=== PATIENT | female | born 1980 | race American Indian/Alaskan Native ===

== ENCOUNTER 2020-05-16 16:14 | Inpatient (IN) | payer MEDICAID ==
--- NOTE | 2020-05-16 17:08 | EDM.PDOC ---
<Guanakito Reyes - Last Filed: 05/16/20 18:52> ED HPI GENERAL MEDICAL PROBLEM - General Chief Complaint: Abdominal Pain Stated Complaint: STOMACH PAIN Time Seen by Provider: 05/16/20 17:00 Source of Information: Reports: Patient, Old Records, RN, RN Notes Reviewed History Limitations: Reports: No Limitations - History of Present Illness INITIAL COMMENTS - FREE TEXT/NARRATIVE: Pt to ER with complaints of abdominal pain since yesterday after noon with diarrhea twice. Admits to nausea. Denies vomiting. No COVID exposure, tested negative a long time ago she states. She states the pain is sharp and makes it hard to breathe. She states that the pain goes into her back and it is upper and lower, and the pain is worse when she tries to push down to pee or have BM. Pt rates the pain 04/24. Onset: Gradual Onset Date: 05/15/20 Duration: Constant, Getting Worse Location: Reports: Abdomen Quality: Reports: Ache Severity: Severe Associated Symptoms: Reports: No Other Symptoms Abdomen Pain Score (Numeric/FACES): 10 - Related Data Allergies Allergy/AdvReac Type Severity Reaction Status Date / Time No Known Allergies Allergy Verified 05/16/20 16:53 Home Meds: Home Meds . [No Known Home Meds] 07/03/18 [History] Past Medical History Musculoskeletal History: Reports: Osteoarthritis Psychiatric History: Reports: Addiction Endocrine/Metabolic History: Reports: Obesity/BMI 30+ Social & Family History - Family History Family Medical History: Noncontributory - Tobacco Use Tobacco Use Status *Q: Current Every Day Tobacco User Years of Tobacco use: 5 Packs/Tins Daily: 0.1 - Caffeine Use Caffeine Use: Reports: Soda - Recreational Drug Use Recreational Drug Use: Yes Drug Use in Last 12 Months: Yes Recreational Drug Type: Reports: Methamphetamine - Living Situation & Occupation Living situation: Reports: with Family ED ROS GENERAL - Review of Systems Review Of Systems: Comprehensive ROS is negative, except as noted in HPI. ED EXAM, GI/ABD - Physical Exam Exam: See Below Exam Limited By: No Limitations General Appearance: Alert, WD/WN, Anxious, Mild Distress (due to pain) Eyes: Bilateral: Normal Appearance (No scleral icterus) Nose: Normal Inspection Throat/Mouth: Normal Inspection, Normal Lips, Normal Voice, No Airway Compromise Head: Atraumatic, Normocephalic Neck: Normal Inspection Respiratory/Chest: No Respiratory Distress, Lungs Clear, Normal Breath Sounds, No Accessory Muscle Use, Chest Non-Tender Cardiovascular: Regular Rate, Rhythm, Tachycardia GI/Abdominal Exam: Normal Bowel Sounds, Soft, No Distention, Pelvis Stable, Guarding, Rebound (at RLQ), Tender (acutely tender throughout entire abdomen). No: Rigid (Female) Exam: Deferred Rectal (Female) Exam: Deferred Back Exam: Normal Inspection, Full Range of Motion. No: CVA Tenderness (L), CVA Tenderness (R) Extremities: Normal Inspection Neurological: Alert, Oriented, CN II-XII Intact, Normal Cognition, Normal Gait, No Motor/Sensory Deficits Psychiatric: Anxious, Tearful Skin Exam: Warm, Dry, Intact, Normal Color, No Rash Course - Re-Assessments/Exams Free Text/Narrative Re-Assessment/Exam: 05/16/20 19:00 Care of pt transferred to Braulio Cihu [employer] at 1900HR shift change. Departure - Departure Disposition: Admitted As Inpatient 67 Clinical Impression: Diverticulitis, Colitis - Discharge Information Forms: ED Department Discharge Sepsis Event Note (ED) - Evaluation Sepsis Screening Result: No Definite Risk <Kaia Chiu - Last Filed: 05/16/20 20:05> Course - Vital Signs Last Recorded V/S: Last Vital Signs Temp 99.7 F 05/16/20 16:50 Pulse 145 H 05/16/20 16:50 Resp 14 05/16/20 16:50 BP 114/71 05/16/20 16:50 Pulse Ox 100 05/16/20 16:50 - Orders/Labs/Meds Orders: Active Orders 24 hr Category Date Time Status Admission Diagnosis [ADT] Stat ADT 05/16/20 20:01 Ordered Admission Status [Patient Status] [ADT] Routine ADT 05/16/20 20:01 Ordered Peripheral IV Care [RC] . DIRECTED Care 05/16/20 17:34 Active Peripheral IV Care [RC] . DIRECTED Care 05/16/20 17:59 Active CULTURE BLOOD [BC] Stat Lab 05/16/20 17:34 Ordered CULTURE BLOOD [BC] Stat Lab 05/16/20 17:34 Ordered CULTURE URINE [RM] Stat Lab 05/16/20 17:05 Received UA W/MICROSCOPIC [URIN] Stat Lab 05/16/20 17:05 Results Lactated Ringers [Ringers, Lactated] 1,000 ml Med 05/16/20 20:00 Active IV ASDIRECTED Sodium Chloride 0.9% [Saline Flush] Med 05/16/20 17:34 Active 10 ml FLUSH ASDIRECTED PRN Sodium Chloride 0.9% [Saline Flush] Med 05/16/20 17:59 Active 10 ml FLUSH ASDIRECTED PRN Blood Culture x2 Reflex Set [OM.PC] Stat Ot 05/16/20 17:33 Ordered Peripheral IV Insertion Adult [OM.PC] Stat Ot 05/16/20 17:33 Ordered Peripheral IV Insertion Adult [OM.PC] Stat Ot 05/16/20 17:59 Ordered Medication Orders Lactated Ringer's (Ringers, Lactated) 1,000 mls @ 500 mls/hr IV ASDIRECTED ZACHERY Last Admin: 05/16/20 19:55 Dose: 500 mls/hr Documented by: BRYANT Sodium Chloride (Saline Flush) 10 ml FLUSH ASDIRECTED PRN PRN Reason: Keep Vein Open Last Admin: 05/16/20 17:52 Dose: 10 ml Documented by: OMSAN Sodium Chloride (Saline Flush) 10 ml FLUSH ASDIRECTED PRN PRN Reason: Keep Vein Open Last Admin: 05/16/20 18:15 Dose: 10 ml Documented by: OSMAN Labs: Laboratory Tests 05/16/20 05/16/20 05/16/20 Range/Units 17:05 17:05 17:21 WBC 18.0 H (5.0-10.0) 10^3/uL RBC 4.40 (4.2-5.4) 10^6/uL Hgb 11.7 L (12.0-16.0) g/dL Hct 36.6 L (37.0-47.0) % MCV 83.2 D (80-100) fL MCH 26.6 L (27.0-34.0) pg MCHC 32.0 L (33.0-35.0) g/dL Plt Count 219 D (150-450) 10^3/uL Neut % (Auto) 83.1 H (42.2-75.2) % Lymph % (Auto) 12.4 L (20.5-50.1) % [place] % (Auto) 4.4 (2-8) % Eos % (Auto) 0.0 L (1.0-3.0) % Baso % (Auto) 0.1 (0.0-1.0) % Sodium (136-145) mmol/L Potassium (3.5-5.1) mmol/L Chloride (98-107) mmol/L Carbon Dioxide (21-32) mmol/L Anion Gap (7-13) mEq/L BUN (7-18) mg/dL Creatinine (0.55-1.02) mg/dL Est Cr Clr Drug Dosing mL/min Estimated GFR (MDRD) BUN/Creatinine Ratio (No establ ref range) Glucose (74-99) mg/dL Lactic Acid (0.4-2.0) mmol/L Calcium (8.5-10.1) mg/dL Total Bilirubin (0.2-1.0) mg/dL AST (15-37) U/L ALT (14-59) U/L Alkaline Phosphatase (46-116) U/L Total Protein (6.4-8.2) g/dL Albumin (3.4-5.0) g/dL Globulin Albumin/Globulin Ratio Amylase (25-115) U/L Lipase (73-393) U/L Urine Color Yellow (YELLOW) Urine Appearance Cloudy (CLEAR) Urine pH 6.0 (5.0-9.0) Ur Specific [place] >= 1.030 (1.005-1.030) Urine Protein 100 H (NEGATIVE) Urine Glucose (UA) Negative (NEGATIVE) Urine Ketones Trace H (NEGATIVE) Urine Occult Blood Moderate H (NEGATIVE) Urine Nitrite Negative (NEGATIVE) Urine Bilirubin Small H (NEGATIVE) Urine Urobilinogen 4.0 H (0.2-1.0) mg/dL Ur Leukocyte Esterase Small H (NEGATIVE) Urine Opiates Screen Negative (NEGATIVE) Ur Oxycodone Screen Negative (NEGATIVE) Urine Methadone Screen Negative (NEGATIVE) Ur Barbiturates Screen Negative (NEGATIVE) U Tricyclic Antidepress Negative (NEGATIVE) Ur Phencyclidine Scrn Negative (NEGATIVE) Ur Amphetamine Screen Positive H (NEGATIVE) U Methamphetamines Scrn Positive H (NEGATIVE) Urine MDMA Screen Negative (NEGATIVE) U Benzodiazepines Scrn Negative (NEGATIVE) Urine Cocaine Screen Negative (NEGATIVE) U Marijuana (THC) Screen Negative (NEGATIVE) 11/08/0405/16/20 05/16/20 Range/Units 17:21 17:21 18:55 WBC (5.0-10.0) 10^3/uL RBC (4.2-5.4) 10^6/uL Hgb (12.0-16.0) g/dL Hct (37.0-47.0) % MCV (80-100) fL MCH (27.0-34.0) pg MCHC (33.0-35.0) g/dL Plt Count (150-450) 10^3/uL Neut % (Auto) (42.2-75.2) % Lymph % (Auto) (20.5-50.1) % [place] % (Auto) (2-8) % Eos % (Auto) (1.0-3.0) % Baso % (Auto) (0.0-1.0) % Sodium 132 L 134 L (136-145) mmol/L Potassium 3.7 3.4 L (3.5-5.1) mmol/L Chloride 96 L 100 (98-107) mmol/L Carbon Dioxide 25 22 (21-32) mmol/L Anion Gap 14.7 H 15.4 H (7-13) mEq/L BUN 27 H 26 H (7-18) mg/dL Creatinine 1.30 H 1.22 H (0.55-1.02) mg/dL Est Cr Clr Drug Dosing 46.41 49.45 mL/min Estimated GFR (MDRD) 46 49 BUN/Creatinine Ratio 20.8 (No establ ref range) Glucose 110 H 99 (74-99) mg/dL Lactic Acid 1.1 (0.4-2.0) mmol/L Calcium 9.2 8.2 L (8.5-10.1) mg/dL Total Bilirubin 0.6 (0.2-1.0) mg/dL AST 12 L (15-37) U/L ALT 10 L (14-59) U/L Alkaline Phosphatase 78 (46-116) U/L Total Protein 8.5 H (6.4-8.2) g/dL Albumin 3.3 L (3.4-5.0) g/dL Globulin 5.2 Albumin/Globulin Ratio 0.63 Amylase 23 L (25-115) U/L Lipase 63 L (73-393) U/L Urine Color (YELLOW) Urine Appearance (CLEAR) Urine pH (5.0-9.0) Ur Specific [place] (1.005-1.030) Urine Protein (NEGATIVE) Urine Glucose (UA) (NEGATIVE) Urine Ketones (NEGATIVE) Urine Occult Blood (NEGATIVE) Urine Nitrite (NEGATIVE) Urine Bilirubin (NEGATIVE) Urine Urobilinogen (0.2-1.0) mg/dL Ur Leukocyte Esterase (NEGATIVE) Urine Opiates Screen (NEGATIVE) Ur Oxycodone Screen (NEGATIVE) Urine Methadone Screen (NEGATIVE) Ur Barbiturates Screen (NEGATIVE) U Tricyclic Antidepress (NEGATIVE) Ur Phencyclidine Scrn (NEGATIVE) Ur Amphetamine Screen (NEGATIVE) U Methamphetamines Scrn (NEGATIVE) Urine MDMA Screen (NEGATIVE) U Benzodiazepines Scrn (NEGATIVE) Urine Cocaine Screen (NEGATIVE) U Marijuana (THC) Screen (NEGATIVE) Meds: Medications Generic Name Dose Route Start Last Admin Trade Name Freq PRN Reason Stop Dose Admin Lactated Ringer's 1,000 mls @ 500 mls/hr 05/16/20 20:00 05/16/20 19:55 Ringers, Lactated IV 500 mls/hr ASDIRECTED ZACHERY Administration Sodium Chloride 10 ml 05/16/20 17:34 05/16/20 17:52 Saline Flush FLUSH 10 ml ASDIRECTED PRN Administration Keep Vein Open Sodium Chloride 10 ml 05/16/20 17:59 05/16/20 18:15 Saline Flush FLUSH 10 ml ASDIRECTED PRN Administration Keep Vein Open Discontinued Medications Generic Name Dose Route Start Last Admin Trade Name Freq PRN Reason Stop Dose Admin Hydromorphone HCl 1 mg 05/16/20 18:35 05/16/20 18:38 Dilaudid IVPUSH 05/16/20 18:36 1 mg ONETIME ONE Administration Sodium Chloride 1,000 mls @ 999 mls/hr 05/16/20 17:33 05/16/20 17:52 Normal Saline IV 05/16/20 18:33 999 mls/hr .BOLUS ONE Administration Piperacillin Sod/Tazobactam 100 mls @ 200 mls/hr 05/16/20 17:37 05/16/20 17:53 Sod 3.375 gm/ Sodium Chloride IV 05/16/20 18:06 200 mls/hr ONETIME ONE Administration Sodium Chloride 1,000 mls @ 999 mls/hr 05/16/20 17:59 05/16/20 18:14 Normal Saline IV 05/16/20 18:59 999 mls/hr .BOLUS ONE Administration Lactated Ringer's 500 mls @ 500 mls/hr 05/16/20 19:47 Ringers, Lactated IV 05/16/20 20:46 .BOLUS ONE Iopamidol 100 ml 05/16/20 18:36 05/16/20 19:12 Isovue-300 (61%) IVPUSH 05/16/20 18:37 100 ml ONETIME ONE Administration Ondansetron HCl 4 mg 05/16/20 17:33 05/16/20 17:52 Zofran IV 05/16/20 17:34 4 mg ONETIME ONE Administration - Radiology Interpretation Free Text/Narrative:: CT Abdomen/Pelvis with contrast: PROCEDURE INFORMATION: Exam: CT Abdomen And Pelvis With Contrast Exam date and time: 05/16/2020 7:29 PM Age: 39 years old Clinical indication: Other: Wbc 18,000; Additional info: Gen. Abdominal pain w/rebound @ rlq TECHNIQUE: Imaging protocol: Computed tomography of the abdomen and pelvis with intravenous contrast. Radiation optimization: All CT scans at this facility use at least one of these dose optimization techniques: automated exposure control; mA and/or kV adjustment per patient size (includes targeted exams where dose is matched to clinical indication); or iterative reconstruction. Contrast material: [id number]; Contrast volume: 75 ml; Contrast route: INTRAVENOUS (IV); COMPARISON: No relevant prior studies available. FINDINGS: Liver: Normal. No mass. Gallbladder and bile ducts: The gallbladder has been removed. There is no biliary ductal dilatation. Pancreas: Normal. No ductal dilation. Spleen: Normal. No splenomegaly. Adrenal glands: Normal. No mass. Kidneys and ureters: Normal. No hydronephrosis. Stomach and bowel: The colon is fluid-filled. Findings suggest probable diarrheal illness. Question possible colitis. Few scattered diverticula are present with inflammatory change in the left lower quadrant. Acute diverticulitis is possible. Appendix: No evidence of appendicitis. Intraperitoneal space: Unremarkable. No free air. No significant fluid collection. Vasculature: Unremarkable. No abdominal aortic aneurysm. Lymph nodes: Unremarkable. No enlarged lymph nodes. Urinary bladder: Unremarkable as visualized. Reproductive: Unremarkable as visualized. Bones/joints: Unremarkable. No acute fracture. Soft tissues: Unremarkable. IMPRESSION: 1. Moderate grade inflammatory change in the left lower quadrant where scattered diverticula are present. Acute diverticulitis is likely. Colon is also fluid-filled suggesting probable diarrheal illness. Correlate for possible superimposed colitis. Thank you for allowing us to participate in the care of your patient. Dictated and Authenticated by: Xavi Benavidez MD 05/16/2020 7:49 PM Central Time ([place] & [place]) See rad report - Re-Assessments/Exams Free Text/Narrative Re-Assessment/Exam: 05/16/20 20:05 Discussed patient case with Dr. Parr who agreed to accept the patient for inpatient admission. Departure - Departure Time of Disposition: 20:05 Condition: Fair - Discharge Information *PRESCRIPTION DRUG MONITORING PROGRAM REVIEWED*: No *COPY OF PRESCRIPTION DRUG MONITORING REPORT IN PATIENT BO: No Sepsis Event Note (ED) - Focused Exam Vital Signs: Vital Signs Temp Pulse Resp BP Pulse Ox 05/16/20 16:50 99.7 F 145 H 14 114/71 100 - My Orders Last 24 Hours: My Active Orders 05/16/20 20:00 Lactated Ringers [Ringers, Lactated] 1,000 ml IV ASDIRECTED 05/16/20 20:01 Admission Diagnosis [ADT] Stat Admission Status [Patient Status] [ADT] Routine - Assessment/Plan Last 24 Hours: My Active Orders 05/16/20 20:00 Lactated Ringers [Ringers, Lactated] 1,000 ml IV ASDIRECTED 05/16/20 20:01 Admission Diagnosis [ADT] Stat Admission Status [Patient Status] [ADT] Routine
[2020-05-16] MEDS ORDERED: Sodium Chloride 0.9% 1,000 ML IV ONE ×3 (17:33→22:16)
[2020-05-16] MEDS ORDERED: Ondansetron 4 MG/2 ML SDV IV ONE (17:33)
[2020-05-16] MEDS ORDERED: Sodium Chloride 0.9% 10 ML Syringe FLUSH PRN (17:34)
[2020-05-16] MEDS ORDERED: Piperacillin/Tazobactam 3.375 GM in Sodium Chloride 0.9% 100 ML IV ONE (17:37)
[2020-05-16 17:47] LABS: ANION GAP 14.7 mEq/L (7-13)
[2020-05-16] MEDS: Sodium Chloride 0.9% 10 ML Syringe FLUSH PRN (18:15)
[2020-05-16] MEDS ORDERED: HYDROmorphone 1 MG/ML Syringe IVPUSH ONE (18:35)
[2020-05-16] MEDS ORDERED: Iopamidol 612 MG/ML 100 ML Bottle IVPUSH ONE (18:36)
[2020-05-16 19:13] LABS: ANION GAP 15.4 mEq/L (7-13)
[2020-05-16] MEDS ORDERED: Lactated Ringers 500 ML IV ONE (19:47)
--- NOTE | 2020-05-16 19:49 | CT ---
PROCEDURE INFORMATION: Exam: CT Abdomen And Pelvis With Contrast Exam date and time: 05/16/2020 7:29 PM Age: 39 years old Clinical indication: Other: Wbc 18,000; Additional info: Gen. Abdominal pain w/rebound @ rlq TECHNIQUE: Imaging protocol: Computed tomography of the abdomen and pelvis with intravenous contrast. Radiation optimization: All CT scans at this facility use at least one of these dose optimization techniques: automated exposure control; mA and/or kV adjustment per patient size (includes targeted exams where dose is matched to clinical indication); or iterative reconstruction. Contrast material: [id number]; Contrast volume: 75 ml; Contrast route: INTRAVENOUS (IV); COMPARISON: No relevant prior studies available. FINDINGS: Liver: Normal. No mass. Gallbladder and bile ducts: The gallbladder has been removed. There is no biliary ductal dilatation. Pancreas: Normal. No ductal dilation. Spleen: Normal. No splenomegaly. Adrenal glands: Normal. No mass. Kidneys and ureters: Normal. No hydronephrosis. Stomach and bowel: The colon is fluid-filled. Findings suggest probable diarrheal illness. Question possible colitis. Few scattered diverticula are present with inflammatory change in the left lower quadrant. Acute diverticulitis is possible. Appendix: No evidence of appendicitis. Intraperitoneal space: Unremarkable. No free air. No significant fluid collection. Vasculature: Unremarkable. No abdominal aortic aneurysm. Lymph nodes: Unremarkable. No enlarged lymph nodes. Urinary bladder: Unremarkable as visualized. Reproductive: Unremarkable as visualized. Bones/joints: Unremarkable. No acute fracture. Soft tissues: Unremarkable. IMPRESSION: 1. Moderate grade inflammatory change in the left lower quadrant where scattered diverticula are present. Acute diverticulitis is likely. Colon is also fluid-filled suggesting probable diarrheal illness. Correlate for possible superimposed colitis.
[2020-05-16] MEDS: Lactated Ringers 1,000 ML IV SCH (19:55)
--- NOTE | 2020-05-16 20:54 | PCM.HP ---
H&P History of Present Illness - General Date of Service: 05/16/20 Admit Problem/Dx: Admission Diagnosis/Problem Admission Diagnosis/Problem Diverticulitis Source of Information: Patient History Limitations: Reports: No Limitations - History of Present Illness Initial Comments - Free Text/Narative: 39-year-old female with a medical history of methamphetamine abuse who presented to the ER with complaints of abdominal pain, nausea and diarrhea. Patient reported her symptoms started yesterday with development of moderate to severe abdominal pain. She had 2 episodes of watery stools yesterday. The symptoms was associated with with nausea. Today she had one episode of watery stool again. She rates her pain has 8-10/10. Abdominal pain is diffuse. She denies fever or emesis. In the ER, patient had tachycardia of 145. Labs were significant for WBC of 18, hemoglobin of 11.7, sodium of 134, potassium of 3.4, creatinine of 1.22, lactic acid of 1.1. Urine tox test was positive for methamphetamine and amphetamines. Covid-19 rapid test was negative. CT scan suggested moderate chronic inflammatory change in the left lower quadrant with scattered diverticula daryl rning for acute diverticulitis. Colon was also fluid field suggesting possible colitis. Patient received 2 L of IV fluid and was started on Zosyn Abdomen Pain Score (Numeric/FACES): 10 - Related Data Allergies/Adverse Reactions: Allergies Allergy/AdvReac Type Severity Reaction Status Date / Time No Known Allergies Allergy Verified 05/16/20 16:53 Home Medications: Home Meds . [No Known Home Meds] 07/03/18 [History] Past Medical History Musculoskeletal History: Reports: Osteoarthritis Psychiatric History: Reports: Addiction Endocrine/Metabolic History: Reports: Obesity/BMI 30+ Social & Family History - Family History Family Medical History: Noncontributory - Tobacco Use Tobacco Use Status *Q: Current Every Day Tobacco User Years of Tobacco use: 5 Packs/Tins Daily: 0.1 - Caffeine Use Caffeine Use: Reports: Soda - Recreational Drug Use Recreational Drug Use: Yes Drug Use in Last 12 Months: Yes Recreational Drug Type: Reports: Methamphetamine - Living Situation & Occupation Living situation: Reports: with Family H&P Review of Systems - Review of Systems: Review Of Systems: See Below General: Reports: No Symptoms HEENT: Reports: No Symptoms Pulmonary: Reports: No Symptoms Cardiovascular: Reports: No Symptoms Gastrointestinal: Reports: Abdominal Pain, Diarrhea, Nausea Musculoskeletal: Reports: No Symptoms Skin: Reports: No Symptoms Psychiatric: Reports: No Symptoms Neurological: Reports: No Symptoms Hematologic/Lymphatic: Reports: No Symptoms Immunologic: Reports: No Symptoms Exam - Exam Exam: See Below - Vital Signs Vital Signs: Last Vital Signs Temp 99.7 F 05/16/20 16:50 Pulse 145 H 05/16/20 16:50 Resp 14 05/16/20 16:50 BP 114/71 05/16/20 16:50 Pulse Ox 100 05/16/20 16:50 Weight: 156 lb - Exam General: Alert, Oriented, 4 HEENT: PERRLA, Hearing Intact, Mucosa Moist & [place], Nares Patent, Normal Nasal Septum, Posterior Pharynx Clear, Conjunctiva Clear, EOMI, EACs Clear, TMs Clear Neck: Supple, Trachea Midline, 2 Lungs: Clear to Auscultation, Normal Respiratory Effort Cardiovascular: Regular Rate, Regular Rhythm GI/Abdominal Exam: Normal Bowel Sounds, Soft, No Organomegaly, Tender. No: Distended, Rebound Back Exam: Normal Inspection, Full Range of Motion, NT Extremities: Normal Inspection, Normal Range of Motion, Non-Tender, No Pedal Edema, Normal Capillary Refill Skin: Warm, Dry, Intact Neurological: Cranial Nerves Intact, Reflexes Equal Bilateral Neuro Extensive - Mental Status: Alert, Oriented x3, Normal Mood/Affect, Normal Cognition Neuro Extensive - Motor, Sensory, Reflexes: CN II-XII Intact, Normal Gait, Normal Reflexes Psychiatric: Alert, Normal Affect, Normal Mood - Patient Data Lab Results Last 24 hrs: Laboratory Results - last 24 hr 05/16/20 05/16/20 05/16/20 Range/Units 17:05 17:05 17:21 WBC 18.0 H (5.0-10.0) 10^3/uL RBC 4.40 (4.2-5.4) 10^6/uL Hgb 11.7 L (12.0-16.0) g/dL Hct 36.6 L (37.0-47.0) % MCV 83.2 D (80-100) fL MCH 26.6 L (27.0-34.0) pg MCHC 32.0 L (33.0-35.0) g/dL Plt Count 219 D (150-450) 10^3/uL Neut % (Auto) 83.1 H (42.2-75.2) % Lymph % (Auto) 12.4 L (20.5-50.1) % [place] % (Auto) 4.4 (2-8) % Eos % (Auto) 0.0 L (1.0-3.0) % Baso % (Auto) 0.1 (0.0-1.0) % Sodium (136-145) mmol/L Potassium (3.5-5.1) mmol/L Chloride (98-107) mmol/L Carbon Dioxide (21-32) mmol/L Anion Gap (7-13) mEq/L BUN (7-18) mg/dL Creatinine (0.55-1.02) mg/dL Est Cr Clr Drug Dosing mL/min Estimated GFR (MDRD) BUN/Creatinine Ratio (No establ ref range) Glucose (74-99) mg/dL Lactic Acid (0.4-2.0) mmol/L Calcium (8.5-10.1) mg/dL Total Bilirubin (0.2-1.0) mg/dL AST (15-37) U/L ALT (14-59) U/L Alkaline Phosphatase (46-116) U/L Total Protein (6.4-8.2) g/dL Albumin (3.4-5.0) g/dL Globulin Albumin/Globulin Ratio Amylase (25-115) U/L Lipase (73-393) U/L Urine Color Yellow (YELLOW) Urine Appearance Cloudy (CLEAR) Urine pH 6.0 (5.0-9.0) Ur Specific [place] >= 1.030 (1.005-1.030) Urine Protein 100 H (NEGATIVE) Urine Glucose (UA) Negative (NEGATIVE) Urine Ketones Trace H (NEGATIVE) Urine Occult Blood Moderate H (NEGATIVE) Urine Nitrite Negative (NEGATIVE) Urine Bilirubin Small H (NEGATIVE) Urine Urobilinogen 4.0 H (0.2-1.0) mg/dL Ur Leukocyte Esterase Small H (NEGATIVE) Urine Opiates Screen Negative (NEGATIVE) Ur Oxycodone Screen Negative (NEGATIVE) Urine Methadone Screen Negative (NEGATIVE) Ur Barbiturates Screen Negative (NEGATIVE) U Tricyclic Antidepress Negative (NEGATIVE) Ur Phencyclidine Scrn Negative (NEGATIVE) Ur Amphetamine Screen Positive H (NEGATIVE) U Methamphetamines Scrn Positive H (NEGATIVE) Urine MDMA Screen Negative (NEGATIVE) U Benzodiazepines Scrn Negative (NEGATIVE) Urine Cocaine Screen Negative (NEGATIVE) U Marijuana (THC) Screen Negative (NEGATIVE) SARS CoV-2 RNA Rapid [place] (NEGATIVE) 05/16/20 05/16/20 05/16/20 Range/Units 17:21 17:21 18:55 WBC (5.0-10.0) 10^3/uL RBC (4.2-5.4) 10^6/uL Hgb (12.0-16.0) g/dL Hct (37.0-47.0) % MCV (80-100) fL MCH (27.0-34.0) pg MCHC (33.0-35.0) g/dL Plt Count (150-450) 10^3/uL Neut % (Auto) (42.2-75.2) % Lymph % (Auto) (20.5-50.1) % [place] % (Auto) (2-8) % Eos % (Auto) (1.0-3.0) % Baso % (Auto) (0.0-1.0) % Sodium 132 L 134 L (136-145) mmol/L Potassium 3.7 3.4 L (3.5-5.1) mmol/L Chloride 96 L 100 (98-107) mmol/L Carbon Dioxide 25 22 (21-32) mmol/L Anion Gap 14.7 H 15.4 H (7-13) mEq/L BUN 27 H 26 H (7-18) mg/dL Creatinine 1.30 H 1.22 H (0.55-1.02) mg/dL Est Cr Clr Drug Dosing 46.41 49.45 mL/min Estimated GFR (MDRD) 46 49 BUN/Creatinine Ratio 20.8 (No establ ref range) Glucose 110 H 99 (74-99) mg/dL Lactic Acid 1.1 (0.4-2.0) mmol/L Calcium 9.2 8.2 L (8.5-10.1) mg/dL Total Bilirubin 0.6 (0.2-1.0) mg/dL AST 12 L (15-37) U/L ALT 10 L (14-59) U/L Alkaline Phosphatase 78 (46-116) U/L Total Protein 8.5 H (6.4-8.2) g/dL Albumin 3.3 L (3.4-5.0) g/dL Globulin 5.2 Albumin/Globulin Ratio 0.63 Amylase 23 L (25-115) U/L Lipase 63 L (73-393) U/L Urine Color (YELLOW) Urine Appearance (CLEAR) Urine pH (5.0-9.0) Ur Specific [place] (1.005-1.030) Urine Protein (NEGATIVE) Urine Glucose (UA) (NEGATIVE) Urine Ketones (NEGATIVE) Urine Occult Blood (NEGATIVE) Urine Nitrite (NEGATIVE) Urine Bilirubin (NEGATIVE) Urine Urobilinogen (0.2-1.0) mg/dL Ur Leukocyte Esterase (NEGATIVE) Urine Opiates Screen (NEGATIVE) Ur Oxycodone Screen (NEGATIVE) Urine Methadone Screen (NEGATIVE) Ur Barbiturates Screen (NEGATIVE) U Tricyclic Antidepress (NEGATIVE) Ur Phencyclidine Scrn (NEGATIVE) Ur Amphetamine Screen (NEGATIVE) U Methamphetamines Scrn (NEGATIVE) Urine MDMA Screen (NEGATIVE) U Benzodiazepines Scrn (NEGATIVE) Urine Cocaine Screen (NEGATIVE) U Marijuana (THC) Screen (NEGATIVE) SARS CoV-2 RNA Rapid [place] (NEGATIVE) 05/16/20 Range/Units 19:57 WBC (5.0-10.0) 10^3/uL RBC (4.2-5.4) 10^6/uL Hgb (12.0-16.0) g/dL Hct (37.0-47.0) % MCV (80-100) fL MCH (27.0-34.0) pg MCHC (33.0-35.0) g/dL Plt Count (150-450) 10^3/uL Neut % (Auto) (42.2-75.2) % Lymph % (Auto) (20.5-50.1) % [place] % (Auto) (2-8) % Eos % (Auto) (1.0-3.0) % Baso % (Auto) (0.0-1.0) % Sodium (136-145) mmol/L Potassium (3.5-5.1) mmol/L Chloride (98-107) mmol/L Carbon Dioxide (21-32) mmol/L Anion Gap (7-13) mEq/L BUN (7-18) mg/dL Creatinine (0.55-1.02) mg/dL Est Cr Clr Drug Dosing mL/min Estimated GFR (MDRD) BUN/Creatinine Ratio (No establ ref range) Glucose (74-99) mg/dL Lactic Acid (0.4-2.0) mmol/L Calcium (8.5-10.1) mg/dL Total Bilirubin (0.2-1.0) mg/dL AST (15-37) U/L ALT (14-59) U/L Alkaline Phosphatase (46-116) U/L Total Protein (6.4-8.2) g/dL Albumin (3.4-5.0) g/dL Globulin Albumin/Globulin Ratio Amylase (25-115) U/L Lipase (73-393) U/L Urine Color (YELLOW) Urine Appearance (CLEAR) Urine pH (5.0-9.0) Ur Specific [place] (1.005-1.030) Urine Protein (NEGATIVE) Urine Glucose (UA) (NEGATIVE) Urine Ketones (NEGATIVE) Urine Occult Blood (NEGATIVE) Urine Nitrite (NEGATIVE) Urine Bilirubin (NEGATIVE) Urine Urobilinogen (0.2-1.0) mg/dL Ur Leukocyte Esterase (NEGATIVE) Urine Opiates Screen (NEGATIVE) Ur Oxycodone Screen (NEGATIVE) Urine Methadone Screen (NEGATIVE) Ur Barbiturates Screen (NEGATIVE) U Tricyclic Antidepress (NEGATIVE) Ur Phencyclidine Scrn (NEGATIVE) Ur Amphetamine Screen (NEGATIVE) U Methamphetamines Scrn (NEGATIVE) Urine MDMA Screen (NEGATIVE) U Benzodiazepines Scrn (NEGATIVE) Urine Cocaine Screen (NEGATIVE) U Marijuana (THC) Screen (NEGATIVE) SARS CoV-2 RNA Rapid [place] Negative (NEGATIVE) Result Diagrams: 05/16/20 17:21 05/16/20 18:55 Problem List Initiated/Reviewed/Updated: Yes Orders Last 24hrs: Active Orders 24 hr Category Date Time Status Admission Diagnosis [ADT] Stat ADT 05/16/20 20:01 Ordered Admission Status [Patient Status] [ADT] Routine ADT 05/16/20 20:01 Active Oxygen Therapy [RC] PRN Care 05/16/20 20:50 Ordered Peripheral IV Care [RC] . DIRECTED Care 05/16/20 17:34 Active Peripheral IV Care [RC] . DIRECTED Care 05/16/20 17:59 Active Up ad Ella [RC] ASDIRECTED Care 05/16/20 20:49 Ordered VTE/DVT Education [RC] PER UNIT ROUTINE Care 05/16/20 20:50 Ordered Vital Signs [RC] Q4H Care 05/16/20 20:50 Ordered Nothing per Oral Now Diet [DIET] Diet 05/16/20 Dinner Ordered BASIC METABOLIC PANEL,BMP [CHEM] AM Lab 05/17/20 05:11 Ordered CBC W/O DIFF,HEMOGRAM [HEME] AM Lab 05/17/20 05:11 Ordered CULTURE BLOOD [BC] Stat Lab 05/16/20 17:34 Ordered CULTURE BLOOD [BC] Stat Lab 05/16/20 17:34 Ordered CULTURE URINE [RM] Stat Lab 05/16/20 17:05 Received MAGNESIUM [CHEM] AM Lab 05/17/20 05:11 Ordered PHOSPHORUS [CHEM] AM Lab 05/17/20 05:11 Ordered UA W/MICROSCOPIC [URIN] Stat Lab 05/16/20 17:05 Results Acetaminophen [TylenoL] Med 05/16/20 20:49 Ordered 650 mg PO Q4H PRN Heparin Sodium Med 05/16/20 22:00 Ordered 5,000 units SUBCUT Q8HR Lactated Ringers [Ringers, Lactated] 1,000 ml Med 05/16/20 20:00 Active IV ASDIRECTED Morphine Med 05/16/20 20:49 Ordered 2 mg IVPUSH Q2H PRN Ondansetron [Zofran ODT] Med 05/16/20 20:49 Ordered 4 mg PO Q4H PRN Ondansetron [Zofran] Med 05/16/20 20:49 Ordered 4 mg IVPUSH Q4H PRN Piperacillin/Tazobactam [Zosyn] 3.375 gm Med 05/16/20 21:00 Ordered Sodium Chloride 0.9% [Normal Saline] 100 ml IV Q6H Sodium Chloride 0.9% [Saline Flush] Med 05/16/20 17:34 Active 10 ml FLUSH ASDIRECTED PRN Sodium Chloride 0.9% [Saline Flush] Med 05/16/20 17:59 Active 10 ml FLUSH ASDIRECTED PRN Blood Culture x2 Reflex Set [OM.PC] Stat Oth 05/16/20 17:33 Ordered Peripheral IV Insertion Adult [OM.PC] Stat Oth 05/16/20 17:33 Ordered Peripheral IV Insertion Adult [OM.PC] Stat Oth 05/16/20 17:59 Ordered Resuscitation Status Routine Resus Stat 05/16/20 20:49 Ordered Medication Orders Lactated Ringer's (Ringers, Lactated) 1,000 mls @ 100 mls/hr IV ASDIRECTED ZACHERY Last Admin: 05/16/20 19:55 Dose: 500 mls/hr Documented by: BRYANT Sodium Chloride (Saline Flush) 10 ml FLUSH ASDIRECTED PRN PRN Reason: Keep Vein Open Last Admin: 05/16/20 17:52 Dose: 10 ml Documented by: OSMAN Sodium Chloride (Saline Flush) 10 ml FLUSH ASDIRECTED PRN PRN Reason: Keep Vein Open Last Admin: 05/16/20 18:15 Dose: 10 ml Documented by: OSMAN Assessment/Plan Comment:: Acute diverticulitis Probable colitis Status post bolus IV fluids Start maintenance IV fluids with LR at 100 cc/h N.p.o. Analgesics as needed Obtain C. difficile test Continue Zosyn BUDDY Creatinine of 1.22 Monitor BMP with IV fluids Methamphetamine abuse Counseled on cessation Hypokalemia Potassium of 3.4 Replace Hyponatremia Sodium of 134 Repeat BMP in a.m. Chronic anemia Hemoglobin of 11.7 is at baseline. Repeat CBC in a.m.
[2020-05-16] MEDS ORDERED: Potassium Chloride 10 MEQ Tab.ER PO ONE (21:05)
[2020-05-16] MEDS: Morphine 2 MG/ML SYRINGE IVPUSH PRN ×2 (21:54→23:58)
[2020-05-16] MEDS: Ondansetron 4 MG/2 ML SDV IVPUSH PRN (21:55)
[2020-05-16] MEDS: Heparin Sodium 5,000 Units/ML Vial SUBCUT SCH (21:57)
[2020-05-16] MEDS: Piperacillin/Tazobactam 3.375 GM in Sodium Chloride 0.9% 100 ML IV SCH (23:44)
[2020-05-17] MEDS: Lactated Ringers 1,000 ML IV SCH ×3 (00:53→23:25)
[2020-05-17] MEDS: Morphine 2 MG/ML SYRINGE IVPUSH PRN ×5 (03:39→20:47)
[2020-05-17] MEDS: Acetaminophen 325 MG Tab PO PRN ×2 (03:48→13:07)
[2020-05-17] MEDS: Heparin Sodium 5,000 Units/ML Vial SUBCUT SCH ×3 (05:44→21:06)
[2020-05-17] MEDS: Piperacillin/Tazobactam 3.375 GM in Sodium Chloride 0.9% 100 ML IV SCH ×3 (05:45→18:00)
[2020-05-17 07:06] LABS: ANION GAP 14.4 mEq/L (7-13); CHLORIDE,CL 103 mmol/L (98-107); SODIUM,NA 137 mmol/L (136-145)
[2020-05-17] MEDS ORDERED: Potassium Chloride 10 MEQ Tab.ER PO ONE (09:00)
[2020-05-17] MEDS: Phosphorus #1 250 MG Tab PO SCH ×2 (09:07→20:56)
[2020-05-17] MEDS: Sodium Chloride 0.9% 10 ML Syringe FLUSH PRN ×4 (09:28→21:14)
[2020-05-17] MEDS ORDERED: Magnesium Sulfate/D5W 1 GM/100 ML BAG IV ONE (10:00)
--- NOTE | 2020-05-17 12:10 | PCM.PN ---
- General Info Date of Service: 05/17/20 Admission Dx/Problem (Free Text): Admission Diagnosis/Problem Admission Diagnosis/Problem Diverticulitis Subjective Update: Patient seen and examined today. no BM since admission but still having diffuse abdominal pain. Afebrile overnight. Functional Status: Reports: Pain Controlled - Review of Systems General: Reports: No Symptoms HEENT: Reports: No Symptoms Pulmonary: Reports: No Symptoms Cardiovascular: Reports: No Symptoms Gastrointestinal: Reports: Abdominal Pain Genitourinary: Reports: No Symptoms Musculoskeletal: Reports: No Symptoms Skin: Reports: No Symptoms Neurological: Reports: No Symptoms Psychiatric: Reports: No Symptoms - Patient Data Vitals - Most Recent: Last Vital Signs Temp 98.8 F 05/17/20 08:00 Pulse 92 05/17/20 08:00 Resp 16 05/17/20 08:00 BP 97/58 L 05/17/20 08:00 Pulse Ox 98 05/17/20 08:00 Weight - Most Recent: 156 lb I&O - Last 24 Hours: Intake & Output 05/16/20 05/17/20 05/17/20 22:59 06:59 14:59 Intake Total 2346 Output Total 900 Balance 1446 Lab Results Last 24 Hours: Laboratory Results - last 24 hr 05/16/20 05/16/20 05/16/20 Range/Units 17:05 17:05 17:21 WBC 18.0 H (5.0-10.0) 10^3/uL RBC 4.40 (4.2-5.4) 10^6/uL Hgb 11.7 L (12.0-16.0) g/dL Hct 36.6 L (37.0-47.0) % MCV 83.2 D (80-100) fL MCH 26.6 L (27.0-34.0) pg MCHC 32.0 L (33.0-35.0) g/dL Plt Count 219 D (150-450) 10^3/uL Neut % (Auto) 83.1 H (42.2-75.2) % Lymph % (Auto) 12.4 L (20.5-50.1) % Desha % (Auto) 4.4 (2-8) % Eos % (Auto) 0.0 L (1.0-3.0) % Baso % (Auto) 0.1 (0.0-1.0) % Sodium (136-145) mmol/L Potassium (3.5-5.1) mmol/L Chloride (98-107) mmol/L Carbon Dioxide (21-32) mmol/L Anion Gap (7-13) mEq/L BUN (7-18) mg/dL Creatinine (0.55-1.02) mg/dL Est Cr Clr Drug Dosing mL/min Estimated GFR (MDRD) BUN/Creatinine Ratio (No establ ref range) Glucose (74-99) mg/dL Lactic Acid (0.4-2.0) mmol/L Calcium (8.5-10.1) mg/dL Phosphorus (2.6-4.7) mg/dL Magnesium (1.8-2.4) mg/dL Total Bilirubin (0.2-1.0) mg/dL AST (15-37) U/L ALT (14-59) U/L Alkaline Phosphatase (46-116) U/L Total Protein (6.4-8.2) g/dL Albumin (3.4-5.0) g/dL Globulin Albumin/Globulin Ratio Amylase (25-115) U/L Lipase (73-393) U/L Urine Color Yellow (YELLOW) Urine Appearance Cloudy (CLEAR) Urine pH 6.0 (5.0-9.0) Ur Specific Greig >= 1.030 (1.005-1.030) Urine Protein 100 H (NEGATIVE) Urine Glucose (UA) Negative (NEGATIVE) Urine Ketones Trace H (NEGATIVE) Urine Occult Blood Moderate H (NEGATIVE) Urine Nitrite Negative (NEGATIVE) Urine Bilirubin Small H (NEGATIVE) Urine Urobilinogen 4.0 H (0.2-1.0) mg/dL Ur Leukocyte Esterase Small H (NEGATIVE) Urine RBC TNP Urine WBC TNP Ur Epithelial Cells TNP Urine Bacteria TNP Urine Opiates Screen Negative (NEGATIVE) Ur Oxycodone Screen Negative (NEGATIVE) Urine Methadone Screen Negative (NEGATIVE) Ur Barbiturates Screen Negative (NEGATIVE) U Tricyclic Antidepress Negative (NEGATIVE) Ur Phencyclidine Scrn Negative (NEGATIVE) Ur Amphetamine Screen Positive H (NEGATIVE) U Methamphetamines Scrn Positive H (NEGATIVE) Urine MDMA Screen Negative (NEGATIVE) U Benzodiazepines Scrn Negative (NEGATIVE) Urine Cocaine Screen Negative (NEGATIVE) U Marijuana (THC) Screen Negative (NEGATIVE) SARS CoV-2 RNA Rapid [place] (NEGATIVE) 05/16/20 05/16/20 05/16/20 Range/Units 17:21 17:21 18:55 WBC (5.0-10.0) 10^3/uL RBC (4.2-5.4) 10^6/uL Hgb (12.0-16.0) g/dL Hct (37.0-47.0) % MCV (80-100) fL MCH (27.0-34.0) pg MCHC (33.0-35.0) g/dL Plt Count (150-450) 10^3/uL Neut % (Auto) (42.2-75.2) % Lymph % (Auto) (20.5-50.1) % Desha % (Auto) (2-8) % Eos % (Auto) (1.0-3.0) % Baso % (Auto) (0.0-1.0) % Sodium 132 L 134 L (136-145) mmol/L Potassium 3.7 3.4 L (3.5-5.1) mmol/L Chloride 96 L 100 (98-107) mmol/L Carbon Dioxide 25 22 (21-32) mmol/L Anion Gap 14.7 H 15.4 H (7-13) mEq/L BUN 27 H 26 H (7-18) mg/dL Creatinine 1.30 H 1.22 H (0.55-1.02) mg/dL Est Cr Clr Drug Dosing 46.41 49.45 mL/min Estimated GFR (MDRD) 46 49 BUN/Creatinine Ratio 20.8 (No establ ref range) Glucose 110 H 99 (74-99) mg/dL Lactic Acid 1.1 (0.4-2.0) mmol/L Calcium 9.2 8.2 L (8.5-10.1) mg/dL Phosphorus (2.6-4.7) mg/dL Magnesium (1.8-2.4) mg/dL Total Bilirubin 0.6 (0.2-1.0) mg/dL AST 12 L (15-37) U/L ALT 10 L (14-59) U/L Alkaline Phosphatase 78 (46-116) U/L Total Protein 8.5 H (6.4-8.2) g/dL Albumin 3.3 L (3.4-5.0) g/dL Globulin 5.2 Albumin/Globulin Ratio 0.63 Amylase 23 L (25-115) U/L Lipase 63 L (73-393) U/L Urine Color (YELLOW) Urine Appearance (CLEAR) Urine pH (5.0-9.0) Ur Specific Greig (1.005-1.030) Urine Protein (NEGATIVE) Urine Glucose (UA) (NEGATIVE) Urine Ketones (NEGATIVE) Urine Occult Blood (NEGATIVE) Urine Nitrite (NEGATIVE) Urine Bilirubin (NEGATIVE) Urine Urobilinogen (0.2-1.0) mg/dL Ur Leukocyte Esterase (NEGATIVE) Urine RBC Urine WBC Ur Epithelial Cells Urine Bacteria Urine Opiates Screen (NEGATIVE) Ur Oxycodone Screen (NEGATIVE) Urine Methadone Screen (NEGATIVE) Ur Barbiturates Screen (NEGATIVE) U Tricyclic Antidepress (NEGATIVE) Ur Phencyclidine Scrn (NEGATIVE) Ur Amphetamine Screen (NEGATIVE) U Methamphetamines Scrn (NEGATIVE) Urine MDMA Screen (NEGATIVE) U Benzodiazepines Scrn (NEGATIVE) Urine Cocaine Screen (NEGATIVE) U Marijuana (THC) Screen (NEGATIVE) SARS CoV-2 RNA Rapid [place] (NEGATIVE) 05/16/20 05/17/20 05/17/20 Range/Units 19:57 06:28 06:28 WBC 11.8 H (5.0-10.0) 10^3/uL RBC 3.32 L (4.2-5.4) 10^6/uL Hgb 8.8 L D (12.0-16.0) g/dL Hct 28.6 L (37.0-47.0) % MCV 86.1 (80-100) fL MCH 26.5 L (27.0-34.0) pg MCHC 30.8 L (33.0-35.0) g/dL Plt Count 160 (150-450) 10^3/uL Neut % (Auto) (42.2-75.2) % Lymph % (Auto) (20.5-50.1) % Desha % (Auto) (2-8) % Eos % (Auto) (1.0-3.0) % Baso % (Auto) (0.0-1.0) % Sodium 137 (136-145) mmol/L Potassium 3.4 L (3.5-5.1) mmol/L Chloride 103 (98-107) mmol/L Carbon Dioxide 23 (21-32) mmol/L Anion Gap 14.4 H (7-13) mEq/L BUN 15 (7-18) mg/dL Creatinine 0.90 (0.55-1.02) mg/dL Est Cr Clr Drug Dosing 67.03 mL/min Estimated GFR (MDRD) > 60 BUN/Creatinine Ratio (No establ ref range) Glucose 72 L (74-99) mg/dL Lactic Acid (0.4-2.0) mmol/L Calcium 8.0 L (8.5-10.1) mg/dL Phosphorus 2.2 L (2.6-4.7) mg/dL Magnesium 1.5 L (1.8-2.4) mg/dL Total Bilirubin (0.2-1.0) mg/dL AST (15-37) U/L ALT (14-59) U/L Alkaline Phosphatase (46-116) U/L Total Protein (6.4-8.2) g/dL Albumin (3.4-5.0) g/dL Globulin Albumin/Globulin Ratio Amylase (25-115) U/L Lipase (73-393) U/L Urine Color (YELLOW) Urine Appearance (CLEAR) Urine pH (5.0-9.0) Ur Specific Greig (1.005-1.030) Urine Protein (NEGATIVE) Urine Glucose (UA) (NEGATIVE) Urine Ketones (NEGATIVE) Urine Occult Blood (NEGATIVE) Urine Nitrite (NEGATIVE) Urine Bilirubin (NEGATIVE) Urine Urobilinogen (0.2-1.0) mg/dL Ur Leukocyte Esterase (NEGATIVE) Urine RBC Urine WBC Ur Epithelial Cells Urine Bacteria Urine Opiates Screen (NEGATIVE) Ur Oxycodone Screen (NEGATIVE) Urine Methadone Screen (NEGATIVE) Ur Barbiturates Screen (NEGATIVE) U Tricyclic Antidepress (NEGATIVE) Ur Phencyclidine Scrn (NEGATIVE) Ur Amphetamine Screen (NEGATIVE) U Methamphetamines Scrn (NEGATIVE) Urine MDMA Screen (NEGATIVE) U Benzodiazepines Scrn (NEGATIVE) Urine Cocaine Screen (NEGATIVE) U Marijuana (THC) Screen (NEGATIVE) SARS CoV-2 RNA Rapid [place] Negative (NEGATIVE) Med Orders - Current: Current Medications Acetaminophen (Tylenol) 650 mg PO Q4H PRN PRN Reason: Pain (Mild 1-3)/fever Last Admin: 11/02/20 03:48 Dose: 650 mg Documented by: Heparin Sodium (Porcine) (Heparin Sodium) 5,000 units SUBCUT Q8HR [facility] Last Admin: 05/17/20 05:44 Dose: 5,000 units Documented by: Lactated Ringer's (Ringers, Lactated) 1,000 mls @ 100 mls/hr IV ASDIRECTED [facility] Last Admin: 05/17/20 11:47 Dose: 100 mls/hr Documented by: Piperacillin Sod/Tazobactam (Sod 3.375 gm/ Sodium Chloride) 100 mls @ 200 mls/hr IV Q6H [facility] Last Admin: 05/17/20 05:45 Dose: 200 mls/hr Documented by: Influenza Virus Vaccine (Pharmacy To Dose - Influenza Vaccine) 1 each IM DAILY [facility] Last Admin: 05/17/20 09:08 Dose: Not Given Documented by: Morphine Sulfate (Morphine) 2 mg IVPUSH Q2H PRN PRN Reason: Pain (severe 7-10) Last Admin: 05/17/20 09:28 Dose: 2 mg Documented by: Ondansetron HCl (Zofran Odt) 4 mg PO Q4H PRN PRN Reason: nausea, able to take PO Ondansetron HCl (Zofran) 4 mg IVPUSH Q4H PRN PRN Reason: Nausea/Vomiting Last Admin: 05/16/20 21:55 Dose: 4 mg Documented by: Sodium Chloride (Saline Flush) 10 ml FLUSH ASDIRECTED PRN PRN Reason: Keep Vein Open Last Admin: 05/17/20 09:28 Dose: 10 ml Documented by: Sodium Phosphate (Neutra-Phos) 500 mg PO BID [facility] Stop: 05/18/20 23:00 Last Admin: 05/17/20 09:07 Dose: 500 mg Documented by: Discontinued Medications Hydromorphone HCl (Dilaudid) 1 mg IVPUSH ONETIME ONE Stop: 05/16/20 18:36 Last Admin: 05/16/20 18:38 Dose: 1 mg Documented by: Sodium Chloride (Normal Saline) 1,000 mls @ 999 mls/hr IV .BOLUS ONE Stop: 05/16/20 18:33 Last Admin: 05/16/20 17:52 Dose: 999 mls/hr Documented by: Piperacillin Sod/Tazobactam (Sod 3.375 gm/ Sodium Chloride) 100 mls @ 200 mls/hr IV ONETIME ONE Stop: 05/16/20 18:06 Last Admin: 05/16/20 17:53 Dose: 200 mls/hr Documented by: Sodium Chloride (Normal Saline) 1,000 mls @ 999 mls/hr IV .BOLUS ONE Stop: 05/16/20 18:59 Last Admin: 05/16/20 18:14 Dose: 999 mls/hr Documented by: Lactated Ringer's (Ringers, Lactated) 500 mls @ 500 mls/hr IV .BOLUS ONE Stop: 05/16/20 20:46 Last Admin: 05/16/20 21:21 Dose: Not Given Documented by: Sodium Chloride (Normal Saline) 1,000 mls @ 500 mls/hr IV ONETIME ONE Stop: 05/17/20 00:15 Last Admin: 05/16/20 22:20 Dose: 500 mls/hr Documented by: Magnesium Sulfate/Dextrose (Magnesium Sulfate In D5w 100 Premix) 1 gm in 100 mls @ 100 mls/hr IV ONETIME ONE Stop: 05/17/20 10:59 Last Infusion: 05/17/20 10:34 Dose: Infused Documented by: Iopamidol (Isovue-300 (61%)) 100 ml IVPUSH ONETIME ONE Stop: 05/16/20 18:37 Last Admin: 05/16/20 19:12 Dose: 100 ml Documented by: Ondansetron HCl (Zofran) 4 mg IV ONETIME ONE Stop: 05/16/20 17:34 Last Admin: 05/16/20 17:52 Dose: 4 mg Documented by: Potassium Chloride (Klor-Con 10) 40 meq PO ONETIME ONE Stop: 05/16/20 21:06 Last Admin: 05/16/20 21:58 Dose: 40 meq Documented by: Potassium Chloride (Klor-Con 10) 40 meq PO ONETIME ONE Stop: 05/17/20 09:01 Last Admin: 05/17/20 09:06 Dose: 40 meq Documented by: Sodium Chloride (Saline Flush) 10 ml FLUSH ASDIRECTED PRN PRN Reason: Keep Vein Open Last Admin: 05/16/20 17:52 Dose: 10 ml Documented by: - Exam General: Alert, Oriented HEENT: Pupils Equal, Pupils Reactive, EOMI, Mucous Membr. Moist/[place] Neck: Supple Lungs: Clear to Auscultation, Normal Respiratory Effort Cardiovascular: Regular Rate, Regular Rhythm GI/Abdominal Exam: Normal Bowel Sounds, Soft, No Organomegaly, No Distention, No Abnormal Bruit, No Mass, Pelvis Stable, Tender Back Exam: Normal Inspection, Full Range of Motion Extremities: Normal Inspection, Normal Range of Motion, Non-Tender, No Pedal Edema, Normal Capillary Refill Skin: Warm, Dry, Intact Neurological: No New Focal Deficit Psy/Mental Status: Alert, Normal Affect, Normal Mood Sepsis Event Note - Evaluation Sepsis Screening Result: Sepsis Risk - Focused Exam Vital Signs: Vital Signs Temp Pulse Resp BP Pulse Ox 05/17/20 08:00 98.8 F 92 16 97/58 L 98 05/17/20 05:51 97.9 F 100 05/17/20 03:53 101 F H 117 H 22 H 111/64 95 - Problem List Review Problem List Initiated/Reviewed/Updated: Yes - My Orders Last 24 Hours: My Active Orders 05/16/20 20:49 Up ad Ella [RC] ASDIRECTED Acetaminophen [TylenoL] 650 mg PO Q4H PRN Morphine 2 mg IVPUSH Q2H PRN Ondansetron [Zofran ODT] 4 mg PO Q4H PRN Ondansetron [Zofran] 4 mg IVPUSH Q4H PRN Resuscitation Status Routine 05/16/20 20:50 Oxygen Therapy [RC] PRN VTE/DVT Education [RC] PER UNIT ROUTINE Vital Signs [RC] 00,04,08,12,16,20 05/16/20 22:00 Heparin Sodium 5,000 units SUBCUT Q8HR 05/17/20 00:00 Piperacillin/Tazobactam [Zosyn] 3.375 gm Sodium Chloride 0.9% [Normal Saline] 100 ml IV Q6H 05/17/20 00:16 Influenza Vaccine Charge [RC] .DISCHARGE 05/17/20 09:00 Pharmacy to Dose - InFluenza V [Pharmacy to Dose - InFluenza Vaccine] 1 each IM DAILY Phosphorus #1 [Neutra-Phos] 500 mg PO BID 05/17/20 11:56 Echo Ltd [US] Routine 05/17/20 Lunch Clear Liquid Diet [DIET] 05/17/20 17:00 CULTURE BLOOD [BC] Routine CULTURE BLOOD [BC] Routine Blood Culture x2 Reflex Set [OM.PC] ONETIME - Plan Plan:: Gram positive jacqui bacteremia Blood culture showed GPR in the 2 sets. Likely GI source. - Repeat blood culture daily until negative - Obtain TTE to evaluate for infective endocarditis - Continue Zosyn. Will need 2 vs 6 week of antibiotics pending echo and clinical improvement Acute diverticulitis Probable colitis Status post bolus IV fluids - Continue maintenance IV fluids with LR at 100 cc/h - Start clear liquid diet Analgesics as needed Obtain C. difficile test Continue Zosyn - Leukocytosis improving BUDDY Creatinine of 1.22 Resolved Methamphetamine abuse Counseled on cessation Hypokalemia Potassium of 3.4 Replaced Hypomagnesemia Hypophosphatemia Mag of 1.5 and Phos of 2.2 - Replaced Hyponatremia Sodium of 134 Resolved Chronic anemia Hemoglobin down to 8.8 from 11.7. No obvious bleeding. Likely hemodilution. Continue to monitor with daily CBC.
[2020-05-18] MEDS: Sodium Chloride 0.9% 10 ML Syringe FLUSH PRN ×8 (00:22→22:47)
[2020-05-18] MEDS: Piperacillin/Tazobactam 3.375 GM in Sodium Chloride 0.9% 100 ML IV SCH ×4 (00:27→18:48)
[2020-05-18] MEDS: Morphine 2 MG/ML SYRINGE IVPUSH PRN ×4 (06:15→22:38)
[2020-05-18] MEDS: Heparin Sodium 5,000 Units/ML Vial SUBCUT SCH ×3 (06:23→22:22)
[2020-05-18 06:49] LABS: CHLORIDE,CL 105 mmol/L (98-107); SODIUM,NA 139 mmol/L (136-145)
[2020-05-18] MEDS: Phosphorus #1 250 MG Tab PO SCH ×2 (08:56→22:19)
[2020-05-18] MEDS: Lactated Ringers 1,000 ML IV SCH ×2 (10:35→21:53)
--- NOTE | 2020-05-18 13:35 | PCM.PN ---
- General Info Date of Service: 05/18/20 Admission Dx/Problem (Free Text): Admission Diagnosis/Problem Admission Diagnosis/Problem Diverticulitis Subjective Update: Patient seen and examined today. Having diarrhea and nausea. Abdominal pain slightly improved. Afebrile overnight. Functional Status: Reports: Pain Controlled - Review of Systems General: Reports: No Symptoms HEENT: Reports: No Symptoms Pulmonary: Reports: No Symptoms Cardiovascular: Reports: No Symptoms Gastrointestinal: Reports: Abdominal Pain, Diarrhea, Nausea Genitourinary: Reports: No Symptoms Musculoskeletal: Reports: No Symptoms Skin: Reports: No Symptoms Neurological: Reports: No Symptoms Psychiatric: Reports: No Symptoms - Patient Data Vitals - Most Recent: Last Vital Signs Temp 98.8 F 05/18/20 13:10 Pulse 76 05/18/20 13:10 Resp 20 05/18/20 13:10 BP 117/81 05/18/20 13:10 Pulse Ox 96 05/18/20 13:10 Weight - Most Recent: 156 lb I&O - Last 24 Hours: Intake & Output 05/17/20 05/18/20 05/18/20 22:59 06:59 14:59 Intake Total 300 2703 1300 Output Total 400 700 Balance -100 2703 600 Lab Results Last 24 Hours: Laboratory Results - last 24 hr 05/18/20 05/18/20 Range/Units 06:00 06:00 WBC 8.9 (5.0-10.0) 10^3/uL RBC 3.31 L (4.2-5.4) 10^6/uL Hgb 8.8 L (12.0-16.0) g/dL Hct 28.2 L (37.0-47.0) % MCV 85.2 (80-100) fL MCH 26.6 L (27.0-34.0) pg MCHC 31.2 L (33.0-35.0) g/dL Plt Count 189 (150-450) 10^3/uL Sodium 139 (136-145) mmol/L Potassium 4.0 (3.5-5.1) mmol/L Chloride 105 (98-107) mmol/L Carbon Dioxide 25 (21-32) mmol/L Anion Gap 13.0 (7-13) mEq/L BUN 9 (7-18) mg/dL Creatinine 0.67 (0.55-1.02) mg/dL Est Cr Clr Drug Dosing 90.04 mL/min Estimated GFR (MDRD) > 60 Glucose 79 (74-99) mg/dL Calcium 8.1 L (8.5-10.1) mg/dL Rupesh Results Last 24 Hours: Microbiology 05/16/20 17:40 Aerobic Blood Culture - Preliminary Blood - Venous - Iv Start NO GROWTH AFTER 1 DAY Anaerobic Blood Culture - Final 05/16/20 17:44 Aerobic Blood Culture - Final Blood - Arm, Right Anaerobic Blood Culture - Final 05/16/20 17:05 Urine Culture - Final Urine, Clean Catch Med Orders - Current: Current Medications Acetaminophen (Tylenol) 650 mg PO Q4H PRN PRN Reason: Pain (Mild 1-3)/fever Last Admin: 05/17/20 13:07 Dose: 650 mg Documented by: Heparin Sodium (Porcine) (Heparin Sodium) 5,000 units SUBCUT Q8HR [facility] Last Admin: 05/18/20 06:23 Dose: 5,000 units Documented by: Lactated Ringer's (Ringers, Lactated) 1,000 mls @ 100 mls/hr IV ASDIRECTED [facility] Last Admin: 05/18/20 10:35 Dose: 100 mls/hr Documented by: Piperacillin Sod/Tazobactam (Sod 3.375 gm/ Sodium Chloride) 100 mls @ 200 mls/hr IV Q6H [facility] Last Infusion: 05/18/20 13:03 Dose: Infused Documented by: Influenza Virus Vaccine (Pharmacy To Dose - Influenza Vaccine) 1 each IM DAILY [facility] Last Admin: 05/18/20 08:52 Dose: Not Given Documented by: Morphine Sulfate (Morphine) 2 mg IVPUSH Q2H PRN PRN Reason: Pain (severe 7-10) Last Admin: 05/18/20 12:11 Dose: 2 mg Documented by: Ondansetron HCl (Zofran Odt) 4 mg PO Q4H PRN PRN Reason: nausea, able to take PO Ondansetron HCl (Zofran) 4 mg IVPUSH Q4H PRN PRN Reason: Nausea/Vomiting Last Admin: 05/16/20 21:55 Dose: 4 mg Documented by: Sodium Chloride (Saline Flush) 10 ml FLUSH ASDIRECTED PRN PRN Reason: Keep Vein Open Last Admin: 05/18/20 06:37 Dose: 10 ml Documented by: Sodium Phosphate (Neutra-Phos) 500 mg PO BID [facility] Stop: 05/18/20 23:00 Last Admin: 05/18/20 08:56 Dose: 500 mg Documented by: Discontinued Medications Hydromorphone HCl (Dilaudid) 1 mg IVPUSH ONETIME ONE Stop: 05/16/20 18:36 Last Admin: 05/16/20 18:38 Dose: 1 mg Documented by: Sodium Chloride (Normal Saline) 1,000 mls @ 999 mls/hr IV .BOLUS ONE Stop: 05/16/20 18:33 Last Admin: 05/16/20 17:52 Dose: 999 mls/hr Documented by: Piperacillin Sod/Tazobactam (Sod 3.375 gm/ Sodium Chloride) 100 mls @ 200 mls/hr IV ONETIME ONE Stop: 05/16/20 18:06 Last Admin: 05/16/20 17:53 Dose: 200 mls/hr Documented by: Sodium Chloride (Normal Saline) 1,000 mls @ 999 mls/hr IV .BOLUS ONE Stop: 05/16/20 18:59 Last Admin: 05/16/20 18:14 Dose: 999 mls/hr Documented by: Lactated Ringer's (Ringers, Lactated) 500 mls @ 500 mls/hr IV .BOLUS ONE Stop: 05/16/20 20:46 Last Admin: 05/16/20 21:21 Dose: Not Given Documented by: Sodium Chloride (Normal Saline) 1,000 mls @ 500 mls/hr IV ONETIME ONE Stop: 05/17/20 00:15 Last Admin: 05/16/20 22:20 Dose: 500 mls/hr Documented by: Magnesium Sulfate/Dextrose (Magnesium Sulfate In D5w 100 Premix) 1 gm in 100 mls @ 100 mls/hr IV ONETIME ONE Stop: 05/17/20 10:59 Last Infusion: 05/17/20 10:34 Dose: Infused Documented by: Iopamidol (Isovue-300 (61%)) 100 ml IVPUSH ONETIME ONE Stop: 05/16/20 18:37 Last Admin: 05/16/20 19:12 Dose: 100 ml Documented by: Ondansetron HCl (Zofran) 4 mg IV ONETIME ONE Stop: 05/16/20 17:34 Last Admin: 05/16/20 17:52 Dose: 4 mg Documented by: Potassium Chloride (Klor-Con 10) 40 meq PO ONETIME ONE Stop: 05/16/20 21:06 Last Admin: 05/16/20 21:58 Dose: 40 meq Documented by: Potassium Chloride (Klor-Con 10) 40 meq PO ONETIME ONE Stop: 05/17/20 09:01 Last Admin: 05/17/20 09:06 Dose: 40 meq Documented by: Sodium Chloride (Saline Flush) 10 ml FLUSH ASDIRECTED PRN PRN Reason: Keep Vein Open Last Admin: 05/16/20 17:52 Dose: 10 ml Documented by: - Exam General: Alert, Oriented HEENT: Pupils Equal, Pupils Reactive, EOMI, Mucous Membr. Moist/[place] Neck: Supple Lungs: Clear to Auscultation, Normal Respiratory Effort Cardiovascular: Regular Rate, Regular Rhythm GI/Abdominal Exam: Normal Bowel Sounds, Soft, No Organomegaly, No Distention, No Abnormal Bruit, No Mass, Pelvis Stable, Tender Back Exam: Normal Inspection, Full Range of Motion Extremities: Normal Inspection, Normal Range of Motion, Non-Tender, No Pedal Edema, Normal Capillary Refill Skin: Warm, Dry, Intact Neurological: No New Focal Deficit Psy/Mental Status: Alert, Normal Affect, Normal Mood Sepsis Event Note - Evaluation Sepsis Screening Result: No Definite Risk - Focused Exam Vital Signs: Vital Signs Temp Pulse Resp BP Pulse Ox 05/18/20 13:10 98.8 F 76 20 117/81 96 05/18/20 08:05 99.1 F 78 20 118/82 96 - Problem List Review Problem List Initiated/Reviewed/Updated: Yes - My Orders Last 24 Hours: My Active Orders 05/17/20 13:58 Echo Comp wo Cont [US] Timed 05/17/20 15:44 Notify Provider Vital Signs [RC] ASDIRECTED 05/17/20 17:00 Blood Culture x2 Reflex Set [OM.PC] ONETIME 05/17/20 17:54 CULTURE BLOOD [BC] Routine 05/17/20 21:35 CULTURE BLOOD [BC] Routine 05/18/20 10:01 Isolation [COMM] Stat 05/18/20 10:06 CLOSTRIDIUM DIFFICILE TOX RFLX [MREF] Routine 05/18/20 12:19 CULTURE BLOOD [BC] Stat CULTURE BLOOD [BC] Stat Blood Culture x2 Reflex Set [OM.PC] Stat - Plan Plan:: Gram positive jacqui bacteremia Blood culture showed GPR in the 2 sets. Likely GI source vs IVDU. - Repeat blood culture daily until negative - TTE did not show endocarditis - Continue Zosyn. Will need at least 2 weeks of antibiotics. If persistently bacteremic will try to obtain repeat TTE versus CRISTIANO. Acute diverticulitis Probable colitis - Continue maintenance IV fluids with LR at 100 cc/h -Continue clear liquid diet Analgesics as needed Continue Zosyn - Leukocytosis resolved Obtain C. difficile test BUDDY Creatinine of 1.22 Resolved Methamphetamine abuse History of IVDU Counseled on cessation Hypokalemia Potassium of 3.4 Replaced Hypomagnesemia Hypophosphatemia Mag of 1.5 and Phos of 2.2 - Replaced Hyponatremia Sodium of 134 Resolved Chronic anemia Hemoglobin down to 8.8 from 11.7. No obvious bleeding. Likely hemodilution. Continue to monitor with daily CBC.
[2020-05-18] MEDS: Acetaminophen 325 MG Tab PO PRN (17:22)
[2020-05-19] MEDS: Sodium Chloride 0.9% 10 ML Syringe FLUSH PRN ×9 (00:33→17:37)
[2020-05-19] MEDS: Piperacillin/Tazobactam 3.375 GM in Sodium Chloride 0.9% 100 ML IV SCH ×4 (00:34→17:37)
[2020-05-19] MEDS: Heparin Sodium 5,000 Units/ML Vial SUBCUT SCH ×3 (06:06→21:37)
[2020-05-19] MEDS: Morphine 2 MG/ML SYRINGE IVPUSH PRN (09:08)
[2020-05-19] MEDS: Lactated Ringers 1,000 ML IV SCH (09:10)
[2020-05-19] MEDS: oxyCODONE 5 MG Tab PO PRN ×3 (11:47→21:35)
--- NOTE | 2020-05-19 11:52 | PCM.PN ---
- General Info Date of Service: 05/19/20 Admission Dx/Problem (Free Text): Admission Diagnosis/Problem Admission Diagnosis/Problem Diverticulitis Subjective Update: the pain concentrated more to the right side of the abdomen, associated with loose bowel movement. Tolerating clear liquid diet. Low-grade temperature noted yesterday. No shortness of breath. Functional Status: Reports: Ambulating, Urinating - Review of Systems Pulmonary: Denies: Shortness of Breath Cardiovascular: Denies: Chest Pain, Edema Gastrointestinal: Reports: Abdominal Pain - Patient Data Vitals - Most Recent: Last Vital Signs Temp 98.7 F 05/19/20 08:20 Pulse 94 05/19/20 08:20 Resp 20 05/19/20 08:20 BP 121/82 05/19/20 08:20 Pulse Ox 98 05/19/20 08:20 Weight - Most Recent: 156 lb I&O - Last 24 Hours: Intake & Output 05/18/20 05/19/20 05/19/20 22:59 06:59 14:59 Intake Total 1501 1399 Output Total 900 3500 Balance 601 -2101 Rupesh Results Last 24 Hours: Microbiology 05/18/20 10:06 Clostridioides difficile (PCR) - Final Stool / Feces Clostridioides difficile Toxin Assay - Final 05/17/20 21:35 Aerobic Blood Culture - Preliminary Blood - Venous - Lab Draw NO GROWTH AFTER 1 DAY Anaerobic Blood Culture - Preliminary NO GROWTH AFTER 1 DAY 05/17/20 17:54 Aerobic Blood Culture - Preliminary Blood - Venous NO GROWTH AFTER 1 DAY Anaerobic Blood Culture - Preliminary NO GROWTH AFTER 1 DAY 05/16/20 17:40 Aerobic Blood Culture - Preliminary Blood - Venous - Iv Start NO GROWTH AFTER 2 DAYS Anaerobic Blood Culture - Final 05/16/20 17:44 Aerobic Blood Culture - Final Blood - Arm, Right Anaerobic Blood Culture - Final 05/16/20 17:05 Urine Culture - Final Urine, Clean Catch Med Orders - Current: Current Medications Acetaminophen (Tylenol) 650 mg PO Q4H PRN PRN Reason: Pain (Mild 1-3)/fever Last Admin: 05/18/20 17:22 Dose: 650 mg Documented by: Heparin Sodium (Porcine) (Heparin Sodium) 5,000 units SUBCUT Q8HR [facility] Last Admin: 05/19/20 06:06 Dose: 5,000 units Documented by: Lactated Ringer's (Ringers, Lactated) 1,000 mls @ 100 mls/hr IV ASDIRECTED [facility] Last Admin: 05/19/20 09:10 Dose: 100 mls/hr Documented by: Piperacillin Sod/Tazobactam (Sod 3.375 gm/ Sodium Chloride) 100 mls @ 200 mls/hr IV Q6H [facility] Last Admin: 05/19/20 11:43 Dose: 200 mls/hr Documented by: Influenza Virus Vaccine (Pharmacy To Dose - Influenza Vaccine) 1 each IM DAILY [facility] Last Admin: 05/19/20 08:08 Dose: Not Given Documented by: Morphine Sulfate (Morphine) 2 mg IVPUSH Q2H PRN PRN Reason: Pain (severe 7-10) Last Admin: 05/19/20 09:08 Dose: 2 mg Documented by: Ondansetron HCl (Zofran Odt) 4 mg PO Q4H PRN PRN Reason: nausea, able to take PO Ondansetron HCl (Zofran) 4 mg IVPUSH Q4H PRN PRN Reason: Nausea/Vomiting Last Admin: 05/16/20 21:55 Dose: 4 mg Documented by: Oxycodone HCl (Oxycodone) 5 mg PO Q4H PRN PRN Reason: moderate pain Last Admin: 05/19/20 11:47 Dose: 5 mg Documented by: Sodium Chloride (Saline Flush) 10 ml FLUSH ASDIRECTED PRN PRN Reason: Keep Vein Open Last Admin: 05/19/20 11:46 Dose: 10 ml Documented by: Discontinued Medications Hydromorphone HCl (Dilaudid) 1 mg IVPUSH ONETIME ONE Stop: 05/16/20 18:36 Last Admin: 05/16/20 18:38 Dose: 1 mg Documented by: Sodium Chloride (Normal Saline) 1,000 mls @ 999 mls/hr IV .BOLUS ONE Stop: 05/16/20 18:33 Last Admin: 05/16/20 17:52 Dose: 999 mls/hr Documented by: Piperacillin Sod/Tazobactam (Sod 3.375 gm/ Sodium Chloride) 100 mls @ 200 mls/hr IV ONETIME ONE Stop: 05/16/20 18:06 Last Admin: 05/16/20 17:53 Dose: 200 mls/hr Documented by: Sodium Chloride (Normal Saline) 1,000 mls @ 999 mls/hr IV .BOLUS ONE Stop: 05/16/20 18:59 Last Admin: 05/16/20 18:14 Dose: 999 mls/hr Documented by: Lactated Ringer's (Ringers, Lactated) 500 mls @ 500 mls/hr IV .BOLUS ONE Stop: 05/16/20 20:46 Last Admin: 05/16/20 21:21 Dose: Not Given Documented by: Sodium Chloride (Normal Saline) 1,000 mls @ 500 mls/hr IV ONETIME ONE Stop: 05/17/20 00:15 Last Admin: 05/16/20 22:20 Dose: 500 mls/hr Documented by: Magnesium Sulfate/Dextrose (Magnesium Sulfate In D5w 100 Premix) 1 gm in 100 mls @ 100 mls/hr IV ONETIME ONE Stop: 05/17/20 10:59 Last Infusion: 05/17/20 10:34 Dose: Infused Documented by: Iopamidol (Isovue-300 (61%)) 100 ml IVPUSH ONETIME ONE Stop: 05/16/20 18:37 Last Admin: 05/16/20 19:12 Dose: 100 ml Documented by: Ondansetron HCl (Zofran) 4 mg IV ONETIME ONE Stop: 05/16/20 17:34 Last Admin: 05/16/20 17:52 Dose: 4 mg Documented by: Potassium Chloride (Klor-Con 10) 40 meq PO ONETIME ONE Stop: 05/16/20 21:06 Last Admin: 05/16/20 21:58 Dose: 40 meq Documented by: Potassium Chloride (Klor-Con 10) 40 meq PO ONETIME ONE Stop: 05/17/20 09:01 Last Admin: 05/17/20 09:06 Dose: 40 meq Documented by: Sodium Chloride (Saline Flush) 10 ml FLUSH ASDIRECTED PRN PRN Reason: Keep Vein Open Last Admin: 05/16/20 17:52 Dose: 10 ml Documented by: Sodium Phosphate (Neutra-Phos) 500 mg PO BID [facility] Stop: 05/18/20 23:00 Last Admin: 05/18/20 22:19 Dose: 500 mg Documented by: - Exam General: Alert, Oriented Neck: Supple Lungs: Clear to Auscultation, Normal Respiratory Effort Cardiovascular: Regular Rate, Regular Rhythm GI/Abdominal Exam: Normal Bowel Sounds, No Distention, Tender (left sided) Extremities: No Pedal Edema Sepsis Event Note - Evaluation Sepsis Screening Result: No Definite Risk - Focused Exam Vital Signs: Vital Signs Temp Pulse Resp BP BP Pulse Ox 05/19/20 08:20 98.7 F 94 20 121/82 98 05/19/20 04:00 98.9 F 100 20 137/90 99 - Problem List & Annotations (1) Diverticulitis SNOMED Code(s): 330565913 Code(s): K57.92 - DVTRCLI OF INTEST, PART UNSP, W/O PERF OR ABSCESS W/O BLEED Status: Acute Current Visit: No - Problem List Review Problem List Initiated/Reviewed/Updated: Yes - My Orders Last 24 Hours: My Active Orders 05/19/20 09:51 oxyCODONE 5 mg PO Q4H PRN 05/19/20 Lunch Full Liquid Diet [DIET] 05/20/20 05:11 LACTIC ACID [CHEM] AM 05/20/20 05:15 BASIC METABOLIC PANEL,BMP [CHEM] AM CBC WITH AUTO DIFF [HEME] AM - Plan Plan:: Gram positive jacqui bacteremia Blood culture showed Bacillus in 1/2 sets. Repeat blood culture daily until negative TTE did not show endocarditis discussed with micro lab - likely contaminant - Continue Zosyn. plan to transition to PO abx for diverticulitis Acute diverticulitis Probable colitis - Continue maintenance IV fluids with LR at 100 cc/h advance to full liquid diet Analgesics as needed Continue Zosyn - Leukocytosis resolved BUDDY Creatinine of 1.22 Resolved Methamphetamine abuse History of IVDU Counseled on cessation Hypokalemia Potassium of 3.4 Replaced Hypomagnesemia Hypophosphatemia Mag of 1.5 and Phos of 2.2 - Replaced Hyponatremia Sodium of 134 Resolved Chronic anemia Hemoglobin down to 8.8 from 11.7. No obvious bleeding. Likely hemodilution. Continue to monitor with daily CBC.
[2020-05-19] MEDS: Acetaminophen 325 MG Tab PO PRN ×2 (15:09→19:22)
[2020-05-19] MEDS: Ondansetron 4 MG Tab.DIS PO PRN (17:36)
[2020-05-20] MEDS: Ondansetron 4 MG/2 ML SDV IVPUSH PRN (04:11)
[2020-05-20] MEDS: oxyCODONE 5 MG Tab PO PRN ×5 (04:11→22:20)
[2020-05-20] MEDS: Piperacillin/Tazobactam 3.375 GM in Sodium Chloride 0.9% 100 ML IV SCH ×4 (06:15→12:22)
[2020-05-20] MEDS: Heparin Sodium 5,000 Units/ML Vial SUBCUT SCH ×2 (06:15→13:49)
[2020-05-20 07:34] LABS: CHLORIDE,CL 99 mmol/L (98-107); SODIUM,NA 135 mmol/L (136-145)
[2020-05-20] MEDS: Sodium Chloride 0.9% 10 ML Syringe FLUSH PRN ×2 (12:22→22:06)
--- NOTE | 2020-05-20 13:34 | PCM.PN ---
- General Info Date of Service: 05/20/20 Admission Dx/Problem (Free Text): Admission Diagnosis/Problem Admission Diagnosis/Problem Diverticulitis Subjective Update: the pain is now concentrated more to the right side of the abdomen, associated with loose bowel movement. Tolerating clear liquid diet. no abdominal distention, pain is better, controlled with oral pain medication No shortness of breath. noted fresh blood in the stool Functional Status: Reports: Pain Controlled (with oral pain medication), Tolerating Diet (clear liquid) - Review of Systems General: Denies: Fever, Weakness Pulmonary: Denies: Shortness of Breath Cardiovascular: Denies: Chest Pain, Edema Gastrointestinal: Reports: Abdominal Pain, Diarrhea. Denies: Vomiting Neurological: Denies: Confusion - Patient Data Vitals - Most Recent: Last Vital Signs Temp 98.5 F 05/20/20 08:56 Pulse 94 05/20/20 08:56 Resp 20 05/20/20 08:56 BP 101/78 05/20/20 08:56 Pulse Ox 100 05/20/20 08:56 Weight - Most Recent: 156 lb I&O - Last 24 Hours: Intake & Output 05/19/20 05/20/20 05/20/20 22:59 06:59 14:59 Intake Total 800 88 95 Balance 800 88 95 Lab Results Last 24 Hours: Laboratory Results - last 24 hr 05/20/20 05/20/20 05/20/20 Range/Units 06:57 06:57 06:57 WBC 9.6 (5.0-10.0) 10^3/uL RBC 3.46 L (4.2-5.4) 10^6/uL Hgb 9.1 L (12.0-16.0) g/dL Hct 29.0 L (37.0-47.0) % MCV 83.8 (80-100) fL MCH 26.3 L (27.0-34.0) pg MCHC 31.4 L (33.0-35.0) g/dL Plt Count 237 (150-450) 10^3/uL Neut % (Auto) 75.9 H (42.2-75.2) % Lymph % (Auto) 14.1 L (20.5-50.1) % [place] % (Auto) 9.6 H (2-8) % Eos % (Auto) 0.2 L (1.0-3.0) % Baso % (Auto) 0.2 (0.0-1.0) % Sodium 135 L (136-145) mmol/L Potassium 3.0 L (3.5-5.1) mmol/L Chloride 99 (98-107) mmol/L Carbon Dioxide 28 (21-32) mmol/L Anion Gap 11.0 (7-13) mEq/L BUN 2 L (7-18) mg/dL Creatinine 0.70 (0.55-1.02) mg/dL Est Cr Clr Drug Dosing 86.18 mL/min Estimated GFR (MDRD) > 60 Glucose 99 (74-99) mg/dL Lactic Acid 0.9 (0.4-2.0) mmol/L Calcium 8.3 L (8.5-10.1) mg/dL Rupesh Results Last 24 Hours: Microbiology 05/17/20 21:35 Aerobic Blood Culture - Preliminary Blood - Venous - Lab Draw NO GROWTH AFTER 2 DAYS Anaerobic Blood Culture - Preliminary NO GROWTH AFTER 2 DAYS 05/18/20 19:00 Aerobic Blood Culture - Preliminary Blood - Venous - Lab Draw NO GROWTH AFTER 1 DAY Anaerobic Blood Culture - Preliminary NO GROWTH AFTER 1 DAY 05/17/20 17:54 Aerobic Blood Culture - Preliminary Blood - Venous NO GROWTH AFTER 2 DAYS Anaerobic Blood Culture - Preliminary NO GROWTH AFTER 2 DAYS 05/16/20 17:40 Aerobic Blood Culture - Preliminary Blood - Venous - Iv Start NO GROWTH AFTER 3 DAYS Anaerobic Blood Culture - Final 05/18/20 10:06 Clostridioides difficile (PCR) - Final Stool / Feces Clostridioides difficile Toxin Assay - Final Med Orders - Current: Current Medications Acetaminophen (Tylenol) 650 mg PO Q4H PRN PRN Reason: Pain (Mild 1-3)/fever Last Admin: 05/19/20 19:22 Dose: 650 mg Documented by: Ciprofloxacin (Ciprofloxacin Hcl) 500 mg PO BID [facility] Heparin Sodium (Porcine) (Heparin Sodium) 5,000 units SUBCUT Q8HR [facility] Last Admin: 05/20/20 06:15 Dose: 5,000 units Documented by: Influenza Virus Vaccine (Pharmacy To Dose - Influenza Vaccine) 1 each IM DAILY [facility] Last Admin: 05/19/20 08:08 Dose: Not Given Documented by: Metronidazole (Metronidazole) 500 mg PO Q8H [facility] Morphine Sulfate (Morphine) 2 mg IVPUSH Q2H PRN PRN Reason: Pain (severe 7-10) Last Admin: 05/19/20 09:08 Dose: 2 mg Documented by: Ondansetron HCl (Zofran Odt) 4 mg PO Q4H PRN PRN Reason: nausea, able to take PO Last Admin: 05/19/20 17:36 Dose: 4 mg Documented by: Ondansetron HCl (Zofran) 4 mg IVPUSH Q4H PRN PRN Reason: Nausea/Vomiting Last Admin: 05/20/20 04:11 Dose: 4 mg Documented by: Oxycodone HCl (Oxycodone) 5 mg PO Q4H PRN PRN Reason: moderate pain Last Admin: 05/20/20 08:48 Dose: 5 mg Documented by: Sodium Chloride (Saline Flush) 10 ml FLUSH ASDIRECTED PRN PRN Reason: Keep Vein Open Last Admin: 05/20/20 12:22 Dose: 10 ml Documented by: Discontinued Medications Hydromorphone HCl (Dilaudid) 1 mg IVPUSH ONETIME ONE Stop: 05/16/20 18:36 Last Admin: 05/16/20 18:38 Dose: 1 mg Documented by: Sodium Chloride (Normal Saline) 1,000 mls @ 999 mls/hr IV .BOLUS ONE Stop: 05/16/20 18:33 Last Admin: 05/16/20 17:52 Dose: 999 mls/hr Documented by: Piperacillin Sod/Tazobactam (Sod 3.375 gm/ Sodium Chloride) 100 mls @ 200 mls/hr IV ONETIME ONE Stop: 05/16/20 18:06 Last Admin: 05/16/20 17:53 Dose: 200 mls/hr Documented by: Sodium Chloride (Normal Saline) 1,000 mls @ 999 mls/hr IV .BOLUS ONE Stop: 05/16/20 18:59 Last Admin: 05/16/20 18:14 Dose: 999 mls/hr Documented by: Lactated Ringer's (Ringers, Lactated) 500 mls @ 500 mls/hr IV .BOLUS ONE Stop: 05/16/20 20:46 Last Admin: 05/16/20 21:21 Dose: Not Given Documented by: Lactated Ringer's (Ringers, Lactated) 1,000 mls @ 100 mls/hr IV ASDIRECTED [facility] Last Infusion: 05/19/20 12:30 Dose: 100 mls/hr Documented by: Piperacillin Sod/Tazobactam (Sod 3.375 gm/ Sodium Chloride) 100 mls @ 200 mls/hr IV Q6H [facility] Last Admin: 05/20/20 12:22 Dose: 200 mls/hr Documented by: Sodium Chloride (Normal Saline) 1,000 mls @ 500 mls/hr IV ONETIME ONE Stop: 05/17/20 00:15 Last Admin: 05/16/20 22:20 Dose: 500 mls/hr Documented by: Magnesium Sulfate/Dextrose (Magnesium Sulfate In D5w 100 Premix) 1 gm in 100 mls @ 100 mls/hr IV ONETIME ONE Stop: 05/17/20 10:59 Last Infusion: 05/17/20 10:34 Dose: Infused Documented by: Iopamidol (Isovue-300 (61%)) 100 ml IVPUSH ONETIME ONE Stop: 05/16/20 18:37 Last Admin: 05/16/20 19:12 Dose: 100 ml Documented by: Ondansetron HCl (Zofran) 4 mg IV ONETIME ONE Stop: 05/16/20 17:34 Last Admin: 05/16/20 17:52 Dose: 4 mg Documented by: Potassium Chloride (Klor-Con 10) 40 meq PO ONETIME ONE Stop: 05/16/20 21:06 Last Admin: 05/16/20 21:58 Dose: 40 meq Documented by: Potassium Chloride (Klor-Con 10) 40 meq PO ONETIME ONE Stop: 05/17/20 09:01 Last Admin: 05/17/20 09:06 Dose: 40 meq Documented by: Sodium Chloride (Saline Flush) 10 ml FLUSH ASDIRECTED PRN PRN Reason: Keep Vein Open Last Admin: 05/16/20 17:52 Dose: 10 ml Documented by: Sodium Phosphate (Neutra-Phos) 500 mg PO BID [facility] Stop: 05/18/20 23:00 Last Admin: 05/18/20 22:19 Dose: 500 mg Documented by: - Exam General: Alert, Oriented Neck: Supple Lungs: Clear to Auscultation, Normal Respiratory Effort Cardiovascular: Regular Rate, Regular Rhythm GI/Abdominal Exam: Normal Bowel Sounds, Soft, Non-Tender. No: Distended, Guarding, Rigid, Rebound, Tender Extremities: No Pedal Edema Neurological: No New Focal Deficit Psy/Mental Status: Alert, Normal Affect, Normal Mood Sepsis Event Note - Evaluation Sepsis Screening Result: No Definite Risk - Focused Exam Vital Signs: Vital Signs Temp Pulse Resp BP Pulse Ox 05/20/20 08:56 98.5 F 94 20 101/78 100 05/20/20 04:00 99.0 F 108 H 20 134/80 97 - Problem List & Annotations (1) Diverticulitis SNOMED Code(s): 912511077 Code(s): K57.92 - DVTRCLI OF INTEST, PART UNSP, W/O PERF OR ABSCESS W/O BLEED Status: Acute Current Visit: No - Problem List Review Problem List Initiated/Reviewed/Updated: Yes - My Orders Last 24 Hours: My Active Orders 05/20/20 13:30 metroNIDAZOLE 500 mg PO Q8H 05/20/20 21:00 Ciprofloxacin [Ciprofloxacin HCl] 500 mg PO BID 05/21/20 05:11 LACTIC ACID [CHEM] AM 05/21/20 05:15 BASIC METABOLIC PANEL,BMP [CHEM] AM CBC WITH AUTO DIFF [HEME] AM - Plan Plan:: Gram positive jacqui bacteremia Blood culture showed Bacillus in 1/2 sets. Repeat blood culture daily until negative TTE did not show endocarditis discussed with micro lab - likely contaminant - Continue Zosyn. plan to transition to PO abx for diverticulitis Acute diverticulitis Probable colitis stop IV fluids advance to general diet Analgesics as needed - Leukocytosis resolved stop Zosyn Transition to oral Flagyl and ciprofloxacin GI bleed Likely lower GI due to diverticulitis, diverticular bleed, possible hemorrhoidal We'll monitor hemoglobin BUDDY Creatinine of 1.22 Resolved Methamphetamine abuse History of IVDU Counseled on cessation Hypokalemia Potassium of 3.4 Replaced Hypomagnesemia Hypophosphatemia - Replaced Hyponatremia Sodium of 134 Resolved Chronic anemia Hemoglobin down to 8.8 from 11.7. No obvious bleeding. Likely hemodilution. Continue to monitor with daily CBC.
[2020-05-20] MEDS: Acetaminophen 325 MG Tab PO PRN ×2 (13:53→22:17)
[2020-05-20] MEDS: metroNIDAZOLE 250 MG Tab PO SCH ×2 (13:54→21:55)
[2020-05-20] MEDS: Ondansetron 4 MG Tab.DIS PO PRN ×2 (18:24→22:21)
[2020-05-20] MEDS: Ciprofloxacin 500 MG Tab PO SCH (21:56)
[2020-05-21] MEDS: Heparin Sodium 5,000 Units/ML Vial SUBCUT SCH ×3 (04:13→14:20)
[2020-05-21] MEDS: metroNIDAZOLE 250 MG Tab PO SCH ×2 (05:49→14:20)
[2020-05-21] MEDS: oxyCODONE 5 MG Tab PO PRN ×2 (05:53→10:59)
[2020-05-21 07:04] LABS: ANION GAP 12.7 mEq/L (7-13); CHLORIDE,CL 101 mmol/L (98-107); SODIUM,NA 137 mmol/L (136-145)
[2020-05-21] MEDS: Ciprofloxacin 500 MG Tab PO SCH (09:19)
--- NOTE | 2020-05-21 10:55 | PCM.DCSUM1 ---
Discharge Summary - Hospital Course Free Text/Narrative:: presented with abdominal pain Acute diverticulitis and Probable colitis seen on ct treated with zosyn and IVF improved tolerating general diet Transition to oral Flagyl and ciprofloxacin Gram positive jacqui bacteremia Blood culture showed Bacillus in 1/2 sets. Repeat blood culture daily until negative TTE did not show endocarditis discussed with micro lab - likely contaminant reported fresh blood in toilet - her periods started, no apparent gi bleed BUDDY Creatinine of 1.22 Resolved Methamphetamine abuse History of IVDU Counseled on cessation will discharge on limited oxycodone Rx Hypokalemia Potassium of 3.4 Replaced Hypomagnesemia Hypophosphatemia - Replaced Hyponatremia Sodium of 134 Resolved Chronic anemia follow as out pt Diagnosis: Stroke: No - Discharge Data Discharge Date: 05/21/20 Discharge Disposition: Home, Self-Care 01 Condition: Stable - Referral to Home Health Primary Care Physician: PCP None - Discharge Diagnosis/Problem(s) (1) Diverticulitis SNOMED Code(s): 392606792 ICD Code: K57.92 - DVTRCLI OF INTEST, PART UNSP, W/O PERF OR ABSCESS W/O BLEED Status: Acute Current Visit: No - Patient Instructions Diet: Mechanical Soft Activity: As Tolerated - Discharge Plan *PRESCRIPTION DRUG MONITORING PROGRAM REVIEWED*: No *COPY OF PRESCRIPTION DRUG MONITORING REPORT IN PATIENT BO: No Prescriptions/Med Rec: Ciprofloxacin [Ciprofloxacin HCl] 500 mg PO BID #14 tablet metroNIDAZOLE 500 mg PO Q8HR #21 tablet oxyCODONE 5 mg PO Q4H PRN #12 tablet PRN Reason: moderate pain Home Medications: Home Meds Acetaminophen [Tylenol] 650 mg PO Q4H PRN tablet 05/21/20 [Rx] Ciprofloxacin [Ciprofloxacin HCl] 500 mg PO BID #14 tablet 05/21/20 [Rx] metroNIDAZOLE 500 mg PO Q8HR #21 tablet 05/21/20 [Rx] oxyCODONE 5 mg PO Q4H PRN #12 tablet 05/21/20 [Rx] Oxygen Therapy Mode: Room Air Referrals: [facility] [Ordering Only Provider] - - Discharge Summary/Plan Comment DC Time >30 min.: No - General Info Date of Service: 05/21/20 Subjective Update: tolerating diet her periods startd no abdominal distention, pain is better, controlled with oral pain medication No shortness of breath. Functional Status: Reports: Pain Controlled, Tolerating Diet - Review of Systems General: Denies: Fever Pulmonary: Denies: Shortness of Breath Cardiovascular: Denies: Chest Pain Neurological: Denies: Confusion - Patient Data Vitals - Most Recent: Last Vital Signs Temp 99 F 05/21/20 07:39 Pulse 87 05/21/20 07:39 Resp 18 05/21/20 07:39 BP 114/61 05/21/20 07:39 Pulse Ox 97 05/21/20 07:39 Weight - Most Recent: 156 lb I&O - Last 24 hours: Intake & Output 05/20/20 05/21/20 05/21/20 22:59 06:59 14:59 Intake Total 1695 500 440 Output Total 1650 Balance 1695 -1150 440 Lab Results - Last 24 hrs: Laboratory Results - last 24 hr 05/21/20 05/21/20 05/21/20 Range/Units 06:20 06:20 06:20 WBC 8.7 (5.0-10.0) 10^3/uL RBC 3.66 L (4.2-5.4) 10^6/uL Hgb 9.6 L (12.0-16.0) g/dL Hct 30.3 L (37.0-47.0) % MCV 82.8 (80-100) fL MCH 26.2 L (27.0-34.0) pg MCHC 31.7 L (33.0-35.0) g/dL Plt Count 285 (150-450) 10^3/uL Neut % (Auto) 72.0 (42.2-75.2) % Lymph % (Auto) 17.8 L (20.5-50.1) % [place] % (Auto) 9.8 H (2-8) % Eos % (Auto) 0.3 L (1.0-3.0) % Baso % (Auto) 0.1 (0.0-1.0) % Add Manual Diff Yes Neutrophils % (Manual) 75 (42-75) % Band Neutrophils % 2 % Lymphocytes % (Manual) 12 L (20-50) % Atypical Lymphs % 1 % Monocytes % (Manual) 9 H (2-8) % Eosinophils % (Manual) 1 (1-3) % Sodium 137 (136-145) mmol/L Potassium 3.7 (3.5-5.1) mmol/L Chloride 101 (98-107) mmol/L Carbon Dioxide 27 (21-32) mmol/L Anion Gap 12.7 (7-13) mEq/L BUN 4 L (7-18) mg/dL Creatinine 0.64 (0.55-1.02) mg/dL Est Cr Clr Drug Dosing 94.26 mL/min Estimated GFR (MDRD) > 60 Glucose 93 (74-99) mg/dL Lactic Acid 0.7 (0.4-2.0) mmol/L Calcium 8.6 (8.5-10.1) mg/dL SHEILA Results - Last 24 hrs: Microbiology 05/17/20 21:35 Aerobic Blood Culture - Preliminary Blood - Venous - Lab Draw NO GROWTH AFTER 3 DAYS Anaerobic Blood Culture - Preliminary NO GROWTH AFTER 3 DAYS 05/18/20 19:00 Aerobic Blood Culture - Preliminary Blood - Venous - Lab Draw NO GROWTH AFTER 2 DAYS Anaerobic Blood Culture - Preliminary NO GROWTH AFTER 2 DAYS 05/17/20 17:54 Aerobic Blood Culture - Preliminary Blood - Venous NO GROWTH AFTER 3 DAYS Anaerobic Blood Culture - Preliminary NO GROWTH AFTER 3 DAYS 05/16/20 17:40 Aerobic Blood Culture - Preliminary Blood - Venous - Iv Start NO GROWTH AFTER 4 DAYS Anaerobic Blood Culture - Final Med Orders - Current: Current Medications Acetaminophen (Tylenol) 650 mg PO Q4H PRN PRN Reason: Pain (Mild 1-3)/fever Last Admin: 05/20/20 22:17 Dose: 650 mg Documented by: Ciprofloxacin (Ciprofloxacin Hcl) 500 mg PO BID [facility] Last Admin: 05/21/20 09:19 Dose: 500 mg Documented by: Heparin Sodium (Porcine) (Heparin Sodium) 5,000 units SUBCUT Q8HR [facility] Last Admin: 05/21/20 05:49 Dose: 5,000 units Documented by: Influenza Virus Vaccine (Pharmacy To Dose - Influenza Vaccine) 1 each IM DAILY [facility] Last Admin: 05/21/20 09:34 Dose: Not Given Documented by: Metronidazole (Metronidazole) 500 mg PO Q8HR [facility] Last Admin: 05/21/20 05:49 Dose: 500 mg Documented by: Morphine Sulfate (Morphine) 2 mg IVPUSH Q2H PRN PRN Reason: Pain (severe 7-10) Last Admin: 05/19/20 09:08 Dose: 2 mg Documented by: Ondansetron HCl (Zofran Odt) 4 mg PO Q4H PRN PRN Reason: nausea, able to take PO Last Admin: 05/20/20 22:21 Dose: 4 mg Documented by: Ondansetron HCl (Zofran) 4 mg IVPUSH Q4H PRN PRN Reason: Nausea/Vomiting Last Admin: 05/20/20 04:11 Dose: 4 mg Documented by: Oxycodone HCl (Oxycodone) 5 mg PO Q4H PRN PRN Reason: moderate pain Last Admin: 05/21/20 05:53 Dose: 5 mg Documented by: Sodium Chloride (Saline Flush) 10 ml FLUSH ASDIRECTED PRN PRN Reason: Keep Vein Open Last Admin: 05/20/20 22:06 Dose: 10 ml Documented by: Discontinued Medications Hydromorphone HCl (Dilaudid) 1 mg IVPUSH ONETIME ONE Stop: 05/16/20 18:36 Last Admin: 05/16/20 18:38 Dose: 1 mg Documented by: Sodium Chloride (Normal Saline) 1,000 mls @ 999 mls/hr IV .BOLUS ONE Stop: 05/16/20 18:33 Last Admin: 05/16/20 17:52 Dose: 999 mls/hr Documented by: Piperacillin Sod/Tazobactam (Sod 3.375 gm/ Sodium Chloride) 100 mls @ 200 mls/hr IV ONETIME ONE Stop: 05/16/20 18:06 Last Admin: 05/16/20 17:53 Dose: 200 mls/hr Documented by: Sodium Chloride (Normal Saline) 1,000 mls @ 999 mls/hr IV .BOLUS ONE Stop: 05/16/20 18:59 Last Admin: 05/16/20 18:14 Dose: 999 mls/hr Documented by: Lactated Ringer's (Ringers, Lactated) 500 mls @ 500 mls/hr IV .BOLUS ONE Stop: 05/16/20 20:46 Last Admin: 05/16/20 21:21 Dose: Not Given Documented by: Lactated Ringer's (Ringers, Lactated) 1,000 mls @ 100 mls/hr IV ASDIRECTED [facility] Last Infusion: 05/19/20 12:30 Dose: 100 mls/hr Documented by: Piperacillin Sod/Tazobactam (Sod 3.375 gm/ Sodium Chloride) 100 mls @ 200 mls/hr IV Q6H [facility] Last Admin: 05/20/20 12:22 Dose: 200 mls/hr Documented by: Sodium Chloride (Normal Saline) 1,000 mls @ 500 mls/hr IV ONETIME ONE Stop: 05/17/20 00:15 Last Admin: 05/16/20 22:20 Dose: 500 mls/hr Documented by: Magnesium Sulfate/Dextrose (Magnesium Sulfate In D5w 100 Premix) 1 gm in 100 mls @ 100 mls/hr IV ONETIME ONE Stop: 05/17/20 10:59 Last Infusion: 05/17/20 10:34 Dose: Infused Documented by: Iopamidol (Isovue-300 (61%)) 100 ml IVPUSH ONETIME ONE Stop: 05/16/20 18:37 Last Admin: 05/16/20 19:12 Dose: 100 ml Documented by: Ondansetron HCl (Zofran) 4 mg IV ONETIME ONE Stop: 05/16/20 17:34 Last Admin: 05/16/20 17:52 Dose: 4 mg Documented by: Potassium Chloride (Klor-Con 10) 40 meq PO ONETIME ONE Stop: 05/16/20 21:06 Last Admin: 05/16/20 21:58 Dose: 40 meq Documented by: Potassium Chloride (Klor-Con 10) 40 meq PO ONETIME ONE Stop: 05/17/20 09:01 Last Admin: 05/17/20 09:06 Dose: 40 meq Documented by: Sodium Chloride (Saline Flush) 10 ml FLUSH ASDIRECTED PRN PRN Reason: Keep Vein Open Last Admin: 05/16/20 17:52 Dose: 10 ml Documented by: Sodium Phosphate (Neutra-Phos) 500 mg PO BID [facility] Stop: 05/18/20 23:00 Last Admin: 05/18/20 22:19 Dose: 500 mg Documented by: - Exam General: Reports: Alert, Oriented Neck: Reports: Supple Lungs: Reports: Clear to Auscultation, Normal Respiratory Effort Cardiovascular: Reports: Regular Rate, Regular Rhythm GI/Abdominal Exam: Normal Bowel Sounds, Soft, Non-Tender Extremities: No Pedal Edema Skin: Reports: Warm, Dry
[2020-05-21] MEDS ORDERED: FLU Vacc QS2020-21 36MOS UP/PF 60 MCG/0.5 ML Syringe IM ONE (12:45)
== END 2020-05-21 14:28 | disposition home or self-care (01) | DRG 392 ==
LOC: DL.ED 16:14 → DL.MS 20:01
PROVIDERS: ADMIT Internal Medicine; ATTEND Internal Medicine
DX: K57.30 Diverticulosis of large intestine without perforation or abscess without bleeding (principal); N17.9 Acute kidney failure, unspecified; E87.1 Hypo-osmolality and hyponatremia; K52.9 Noninfective gastroenteritis and colitis, unspecified; E87.6 Hypokalemia; F15.10 Other stimulant abuse, uncomplicated; E83.42 Hypomagnesemia; E83.39 Other disorders of phosphorus metabolism; D64.9 Anemia, unspecified; M19.90 Unspecified osteoarthritis, unspecified site; E66.9 Obesity, unspecified; F17.210 Nicotine dependence, cigarettes, uncomplicated; Z20.828 Contact with and (suspected) exposure to other viral communicable diseases
CPT/HCPCS: 36415; 74177; 80048; 80053; 80305-QW; 81001; 82150; 83605; 83690; 83735; 84100; 85025; 85027; 87040; 87086; 87493; 90686; 93306; 96365; 96375; 99284; 99285-25; A9270-GY; G0008; J1170; J1644; J2270; J2405; J2543; J3475; J7030; J7050; J7120; Q9967; U0002

== ENCOUNTER 2020-07-15 09:55 | Inpatient (IN) | payer MEDICAID ==
[2020-07-15] MEDS ORDERED: Sodium Chloride 0.9% 10 ML Syringe FLUSH PRN (09:56)
--- NOTE | 2020-07-15 09:56 | EDM.PDOC ---
ED HPI GENERAL MEDICAL PROBLEM - General Chief Complaint: Upper Extremity Injury/Pain Stated Complaint: AMBULANCE Time Seen by Provider: 07/15/20 09:56 Source of Information: Reports: Patient, Old Records, RN, RN Notes Reviewed History Limitations: Reports: No Limitations - History of Present Illness INITIAL COMMENTS - FREE TEXT/NARRATIVE: Pt arrives to ER by [facility] with report that she became homeless last week when she was kicked out of the house she had been staying at, and relapsed to IV methamphetamine use. Two or three days ago she tried to shoot IV meth into the dorsum or her left hand, right forearm, and right antecubital elbow. The day after using the IV drugs each of the three areas had become red, hot, and painful. The left hand is now swollen and she states it is a "hot mess". She also has some swelling on the right arm, but not as severe as the left hand. Pt denies fever, cough, chest pain, or any known COVID exposures. She does admit that she does make much effort to follow COVID protection guidelines. Pt admits to chills, and generalized body aches. She denies sharing needles. Pt rates the left hand pain 7/10. Nothing alleviates the pain. Palpation and movement of the left hand or wrist aggravates the pain. Pt states the her Tetanus vaccine is up to date, and records confirm she received a TDAP in 2013. 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: Musculoskeletal History: Reports: Osteoarthritis Psychiatric History: Reports: Addiction Endocrine/Metabolic History: Reports: Obesity/BMI 30+ Social & Family History - Family History Family Medical History: No Pertinent Family History - Caffeine Use Caffeine Use: Reports: Soda - Recreational Drug Use Recreational Drug Use: Yes Drug Use in Last 12 Months: Yes Recreational Drug Type: Reports: Methamphetamine Recreational Drug Use Frequency: Binges Recreational Drug Route: Reports: Intravenous - Living Situation & Occupation Living situation: Reports: Other (Homeless as of 07/15/20) Occupation: Unemployed Review of Systems - Review of Systems Review Of Systems: Comprehensive ROS is negative, except as noted in HPI. ED EXAM, GENERAL - Physical Exam Exam: See Below Exam Limited By: No Limitations General Appearance: Alert, WD/WN, No Apparent Distress Eye Exam: Bilateral Eye: Normal Inspection (No scleral icterus) Nose: Normal Inspection, Normal Mucosa, No Blood Throat/Mouth: Normal Lips, Normal Voice, No Airway Compromise Head: Atraumatic, Normocephalic Neck: Normal Inspection, Supple, Non-Tender, Full Range of Motion Respiratory/Chest: No Respiratory Distress, Lungs Clear, Normal Breath Sounds, No Accessory Muscle Use, Chest Non-Tender Cardiovascular: Normal Peripheral Pulses, Regular Rate, Rhythm, No Edema GI/Abdominal: Normal Bowel Sounds, Soft, Non-Tender, No Organomegaly Back Exam: Normal Inspection Extremities: No Pedal Edema, Normal Capillary Refill, Other (Dorsal left hand is erythematous, tender, with increased warmth, and soft tissue swelling. Right volar midforearm has a 3-4cm nj. area of tender, firm, erythema, with increased warmth. Right antecubital elbow is tender with mild erythema and increased warmth.) Neurological: Alert, Oriented, CN II-XII Intact, Normal Cognition, Normal Gait, No Motor/Sensory Deficits Psychiatric: Normal Affect, Normal Mood Skin Exam: Warm, Dry ED TRAUMA EXTREMITY PROCEDURES - I&D Site: Dorsal left hand Skin Prep: Providone-Iodine (Betadine) Local Anesthesia: Lidocaine: 1% Plain Local Anesthetic Volume: 5cc Area Incised With: 11 Blade Drainage: Purulent (Culture obtained and ordered.), Bloody, Moderate Amount Probed to Break Up Loculations: Yes Packed With: 1/4 in. Iodoform Sterile Dressinx4(s) Complications: No Course - Vital Signs Last Recorded V/S: Last Vital Signs Temp 97.7 F 07/15/20 10:02 Pulse 100 07/15/20 10:02 Resp 14 07/15/20 10:02 BP 145/109 H 07/15/20 10:02 Pulse Ox 100 07/15/20 10:02 - Orders/Labs/Meds Orders: Active Orders 24 hr Category Date Time Status Peripheral IV Care [RC] . DIRECTED Care 07/15/20 09:57 Active CULTURE BLOOD [BC] Stat Lab 07/15/20 09:56 Received DRUG SCREEN URINE BIORAD [URCHEM] Stat Lab 07/15/20 10:09 Ordered HCG QUALITATIVE,URINE [URCHEM] Stat Lab 07/15/20 10:09 Ordered UA RFX SHEILA AND CULT IF INDIC [URIN] Stat Lab 07/15/20 10:09 Ordered Sodium Chloride 0.9% [Saline Flush] Med 07/15/20 09:56 Active 10 ml FLUSH ASDIRECTED PRN Vancomycin 1 gm Med 07/15/20 10:15 Active Sodium Chloride 0.9% [Normal Saline (AdvBag)] 250 ml IV ONETIME Blood Culture x2 Reflex Set [OM.PC] Stat Oth 07/15/20 09:56 Ordered Peripheral IV Insertion Adult [OM.PC] Stat Oth 07/15/20 09:57 Ordered Medication Orders Vancomycin HCl 1 gm/ Sodium (Chloride) 250 mls @ 166.667 mls/hr IV ONETIME ONE Stop: 07/15/20 11:44 Last Admin: 07/15/20 10:34 Dose: 166.667 mls/hr Documented by: SHAWN Sodium Chloride (Saline Flush) 10 ml FLUSH ASDIRECTED PRN PRN Reason: Keep Vein Open Labs: Laboratory Tests 07/15/20 07/15/20 07/15/20 Range/Units 09:56 09:56 09:56 WBC 6.7 (5.0-10.0) 10^3/uL RBC 4.62 (4.2-5.4) 10^6/uL Hgb 11.9 L D (12.0-16.0) g/dL Hct 37.7 (37.0-47.0) % MCV 81.6 (80-100) fL MCH 25.8 L (27.0-34.0) pg MCHC 31.6 L (33.0-35.0) g/dL Plt Count 271 (150-450) 10^3/uL Neut % (Auto) 65.2 (42.2-75.2) % Lymph % (Auto) 23.9 (20.5-50.1) % [place] % (Auto) 10.7 H (2-8) % Eos % (Auto) 0.1 L (1.0-3.0) % Baso % (Auto) 0.1 (0.0-1.0) % Sodium 137 (136-145) mmol/L Potassium 3.9 (3.5-5.1) mmol/L Chloride 102 (98-107) mmol/L Carbon Dioxide 25 (21-32) mmol/L Anion Gap 13.9 H (7-13) mEq/L BUN 11 (7-18) mg/dL Creatinine 0.79 (0.55-1.02) mg/dL Est Cr Clr Drug Dosing 82.56 mL/min Estimated GFR (MDRD) > 60 BUN/Creatinine Ratio 13.9 (No establ ref range) Glucose 97 (74-99) mg/dL Lactic Acid 0.7 (0.4-2.0) mmol/L Calcium 9.1 (8.5-10.1) mg/dL Total Bilirubin 0.2 (0.2-1.0) mg/dL AST 45 H (15-37) U/L ALT 87 H (14-59) U/L Alkaline Phosphatase 97 (46-116) U/L C-Reactive Protein 6.2 H (0.0-0.9) mg/dL Total Protein 8.8 H (6.4-8.2) g/dL Albumin 3.6 (3.4-5.0) g/dL Globulin 5.2 Albumin/Globulin Ratio 0.7 Ethyl Alcohol 4 (0) mg/dL SARS-CoV-2 RNA ([place]) (NEGATIVE) 07/15/20 Range/Units 09:58 WBC (5.0-10.0) 10^3/uL RBC (4.2-5.4) 10^6/uL Hgb (12.0-16.0) g/dL Hct (37.0-47.0) % MCV (80-100) fL MCH (27.0-34.0) pg MCHC (33.0-35.0) g/dL Plt Count (150-450) 10^3/uL Neut % (Auto) (42.2-75.2) % Lymph % (Auto) (20.5-50.1) % [place] % (Auto) (2-8) % Eos % (Auto) (1.0-3.0) % Baso % (Auto) (0.0-1.0) % Sodium (136-145) mmol/L Potassium (3.5-5.1) mmol/L Chloride (98-107) mmol/L Carbon Dioxide (21-32) mmol/L Anion Gap (7-13) mEq/L BUN (7-18) mg/dL Creatinine (0.55-1.02) mg/dL Est Cr Clr Drug Dosing mL/min Estimated GFR (MDRD) BUN/Creatinine Ratio (No establ ref range) Glucose (74-99) mg/dL Lactic Acid (0.4-2.0) mmol/L Calcium (8.5-10.1) mg/dL Total Bilirubin (0.2-1.0) mg/dL AST (15-37) U/L ALT (14-59) U/L Alkaline Phosphatase (46-116) U/L C-Reactive Protein (0.0-0.9) mg/dL Total Protein (6.4-8.2) g/dL Albumin (3.4-5.0) g/dL Globulin Albumin/Globulin Ratio Ethyl Alcohol (0) mg/dL SARS-CoV-2 RNA ([place]) Negative (NEGATIVE) Meds: Medications Generic Name Dose Route Start Last Admin Trade Name Freq PRN Reason Stop Dose Admin Vancomycin HCl 1 gm/ Sodium 250 mls @ 166.667 mls/hr 07/15/20 10:15 07/15/20 10:34 Chloride IV 07/15/20 11:44 166.667 mls/hr ONETIME ONE Administration Sodium Chloride 10 ml 07/15/20 09:56 Saline Flush FLUSH ASDIRECTED PRN Keep Vein Open Discontinued Medications Generic Name Dose Route Start Last Admin Trade Name Idalia PRN Reason Stop Dose Admin Diphenhydramine HCl 25 mg 07/15/20 10:08 07/15/20 10:34 Benadryl IVPUSH 07/15/20 10:09 25 mg ONETIME ONE Administration Sodium Chloride 1,000 mls @ 999 mls/hr 07/15/20 10:09 07/15/20 10:34 Normal Saline IV 07/15/20 11:09 999 mls/hr .BOLUS ONE Administration Lidocaine HCl 30 ml 07/15/20 10:06 Xylocaine-Mpf 1% INJECT 07/15/20 10:07 ONETIME ONE Vancomycin HCl 1 dose 07/15/20 10:07 07/15/20 10:35 Pharmacy To Dose - Vancomycin .XX 07/15/20 10:08 Not Given ONETIME ONE - Re-Assessments/Exams Free Text/Narrative Re-Assessment/Exam: 07/15/20 11:24 Pt's labs are without an elevated WBC, but I feel the pt requires admission at the abscess of the left hand was large and has regional cellulitis. Plan to admit the pt to Dr. Bro's hospitalist service. Departure - Departure Time of Disposition: 11:26 (admitted to Dr. Bro) Disposition: Admitted As Inpatient 67 Condition: Fair Clinical Impression: Abscess of left hand, Cellulitis of left hand, Cellulitis of right upper extremity, IVDU (intravenous drug user), Methamphetamine abuse - Discharge Information *PRESCRIPTION DRUG MONITORING PROGRAM REVIEWED*: Not Applicable *COPY OF PRESCRIPTION DRUG MONITORING REPORT IN PATIENT BO: Not Applicable Forms: ED Department Discharge Sepsis Event Note (ED) - Focused Exam Vital Signs: Vital Signs Temp Pulse Resp BP Pulse Ox 07/15/20 10:02 97.7 F 100 14 145/109 H 100 - My Orders Last 24 Hours: My Active Orders 07/15/20 09:56 CULTURE BLOOD [BC] Stat Sodium Chloride 0.9% [Saline Flush] 10 ml FLUSH ASDIRECTED PRN Blood Culture x2 Reflex Set [OM.PC] Stat 07/15/20 09:57 Peripheral IV Care [RC] . DIRECTED Peripheral IV Insertion Adult [OM.PC] Stat 07/15/20 10:09 DRUG SCREEN URINE BIORAD [URCHEM] Stat HCG QUALITATIVE,URINE [URCHEM] Stat UA RFX SHEILA AND CULT IF INDIC [URIN] Stat 07/15/20 10:15 Vancomycin 1 gm Sodium Chloride 0.9% [Normal Saline (AdvBag)] 250 ml IV ONETIME - Assessment/Plan Last 24 Hours: My Active Orders 07/15/20 09:56 CULTURE BLOOD [BC] Stat Sodium Chloride 0.9% [Saline Flush] 10 ml FLUSH ASDIRECTED PRN Blood Culture x2 Reflex Set [OM.PC] Stat 07/15/20 09:57 Peripheral IV Care [RC] . DIRECTED Peripheral IV Insertion Adult [OM.PC] Stat 07/15/20 10:09 DRUG SCREEN URINE BIORAD [URCHEM] Stat HCG QUALITATIVE,URINE [URCHEM] Stat UA RFX SHEILA AND CULT IF INDIC [URIN] Stat 12/31/20 10:15 Vancomycin 1 gm Sodium Chloride 0.9% [Normal Saline (AdvBag)] 250 ml IV ONETIME
[2020-07-15] MEDS ORDERED: Lidocaine 1% 30 ML SDV INJECT ONE (10:06)
[2020-07-15] MEDS ORDERED: diphenhydrAMINE 50 MG/ML SDV IVPUSH ONE (10:08)
[2020-07-15] MEDS ORDERED: Sodium Chloride 0.9% 1,000 ML IV ONE (10:09)
[2020-07-15 10:23] LABS: ANION GAP 13.9 mEq/L (7-13); CHLORIDE,CL 102 mmol/L (98-107); SODIUM,NA 137 mmol/L (136-145)
[2020-07-15] MEDS ORDERED: Ondansetron 4 MG Tab.DIS PO PRN (12:06)
[2020-07-15] MEDS ORDERED: Acetaminophen 325 MG Tab PO PRN (12:06)
[2020-07-15] MEDS ORDERED: Docusate Sodium 100 MG Cap PO PRN (12:06)
--- NOTE | 2020-07-15 13:33 | HP ---
CHIEF COMPLAINT: Hand and arm pain. HISTORY OF PRESENT ILLNESS: The patient is a 40-year-old female who was admitted through the emergency room because she was complaining of pain and redness on the left hand and right arm, and patient admitted that she became homeless last July 10, that is last week, because she got kicked out of the house. She relapsed to IV methamphetamine. After she started shooting again some IV meth, then she noticed that there is some redness and pain on her left hand as well as in her right arm, and she was complaining of some chills. She was seen in the emergency room and in the emergency room she was noted to have cellulitis and abscess of the dorsum of the left hand as well as the right arm, and because of this she had an incision and drainage done in the emergency room on the left hand and she also needs IV antibiotics for this and she was then admitted for further evaluation and management. The patient denies though any chest pain, headache, shortness of breath, abdominal pain, nausea, vomiting, or any other complaints. PAST MEDICAL HISTORY: Remarkable for IV drug use and addiction. SOCIAL HISTORY: The patient is a nonsmoker. Occasional alcohol drinker, and currently homeless. FAMILY HISTORY: Noncontributory. REVIEW OF SYSTEMS: As in HPI. The rest of the review of systems is negative. HOME MEDICATIONS: None. ALLERGIES: No known drug allergies. PHYSICAL EXAMINATION: General: The patient is very pleasant. She is alert and oriented, not in any acute distress. Vital Signs: Blood pressure is 145/109, pulse is 100, temperature is 97.7, saturation is 100% on room air. HEENT: Normocephalic. There are pink palpebral conjunctivae. Sclerae anicteric. No JVD. No lymphadenopathy. Heart: Regular rate and rhythm. Normal S1 and S2. No gallops. No rubs. Lungs: Clear. No crackles. No wheezing. Abdomen: Soft, nontender. Bowel sounds positive. Extremities: Negative for any pedal edema. No calf tenderness. There is some dressing on the left hand (status post I and D). There is some erythema on the right mid forearm, which is also tender with warmth. LABORATORY DATA: CBC: WBC 6.7, hemoglobin is 11.9, hematocrit is 37.7, platelets 271. Comp panel: AST is 45, ALT is 87, total protein 8.8. The rest of the panel unremarkable. C-reactive protein is 6.2. SARS-CoV-2 RNA is negative. ADMITTING DIAGNOSES: 1. Cellulitis and abscess of the left hand. 2. Cellulitis of the right forearm. 3. IV drug use (methamphetamine). TREATMENT PLAN: The patient in the emergency room had I and D of the left hand and was also started on vancomycin and blood cultures were also sent. We will continue with IV antibiotics with vancomycin to cover MRSA and we will also put her on Zosyn and the rest of the management as necessary. We will also refer the patient to Elevator Technician for case management. The patient is a full code. [facility] /[id number] MTDD
[2020-07-15] MEDS: oxyCODONE 5 MG Tab PO PRN ×2 (13:35→19:29)
[2020-07-15] MEDS: Piperacillin/Tazobactam 3.375 GM in Sodium Chloride 0.9% 100 ML IV SCH ×2 (13:36→17:25)
[2020-07-15] MEDS: Sodium Chloride 0.9% 1,000 ML IV SCH (17:25)
[2020-07-16] MEDS: Piperacillin/Tazobactam 3.375 GM in Sodium Chloride 0.9% 100 ML IV SCH ×4 (00:32→17:15)
[2020-07-16 07:05] LABS: ANION GAP 12.2 mEq/L (7-13); CHLORIDE,CL 106 mmol/L (98-107); SODIUM,NA 139 mmol/L (136-145)
[2020-07-16] MEDS: Sodium Chloride 0.9% 1,000 ML IV SCH ×2 (07:08→17:15)
[2020-07-16] MEDS: oxyCODONE 5 MG Tab PO PRN ×3 (09:38→20:37)
[2020-07-16] MEDS: Enoxaparin 40 MG/0.4 ML Syringe SUBCUT SCH (09:38)
--- NOTE | 2020-07-16 10:28 | PN ---
DATE: 07/16/2020 SUBJECTIVE: The patient still has the swelling and pain on the left hand, but overall, she is slowly improving. She denies any chest pain or shortness of breath nor any other significant complaints. LABORATORY DATA: Lab workup this morning, CBC: WBC 4.9, hemoglobin is 9.4, hematocrit is 30.2, and platelet is 237. Comp panel: Calcium is 8.1, total protein of 6.3, and albumin is 2.6. The rest of the panel unremarkable. OBJECTIVE: Vital Signs: Blood pressure is 110/75, pulse of 87, respirations 16, temperature of 98, and saturation is 100% on room air. Heart: Regular rate and rhythm. Normal S1 and S2. No gallops. No rubs. Lungs: Equal bilaterally. No crackles. No wheezing. Abdomen: Soft, nontender. Bowel sounds positive. Extremities: Negative for any pedal edema. No calf tenderness. Examination of the left hand is still remarkable for some swelling and dressing is in place. MEDICATIONS: Reviewed. PLAN: We will continue with her present management and continue with IV antibiotics that are Zosyn as well as vancomycin. [facility] /[id number]
[2020-07-17] MEDS: Piperacillin/Tazobactam 3.375 GM in Sodium Chloride 0.9% 100 ML IV SCH ×4 (00:09→17:51)
[2020-07-17] MEDS: Sodium Chloride 0.9% 1,000 ML IV SCH ×2 (02:58→13:35)
[2020-07-17] MEDS: oxyCODONE 5 MG Tab PO PRN ×3 (04:08→17:51)
[2020-07-17] MEDS: Vancomycin 1.75 GM in Sodium Chloride 0.9% 500 ML IV SCH ×2 (10:33→22:18)
[2020-07-17] MEDS: Enoxaparin 40 MG/0.4 ML Syringe SUBCUT SCH (10:35)
--- NOTE | 2020-07-17 11:27 | PN ---
DATE: 07/17/2020 SUBJECTIVE: The patient is still complaining of some swelling and some pain on the left hand, but overall she is slowly improving. She denies any fever, chills, chest pain, shortness of breath, nor any other significant complaints. Wound culture showed skin sam. Urine culture showing Enterococcus faecalis, and blood culture so far has been negative. OBJECTIVE: Vital Signs: Blood pressure is 80/49, pulse of 80, respirations 20, temperature of 97.5, saturation is 97% on room air. Heart: Regular rate and rhythm. Normal S1 and S2. No gallops. No rubs. Lungs: Equal bilaterally. No crackles. No wheezing. Abdomen: Soft, nontender. Bowel sounds positive. Extremities: Negative for any pedal edema. No calf tenderness. Examination of the left hand is remarkable for some swelling and dressing is in place. MEDICATIONS: Reviewed. PLAN: We will continue with her present IV antibiotics that is Zosyn and vancomycin and this should also cover her urinary tract infection with Enterococcus. [facility] /[id number]
[2020-07-18] MEDS: Sodium Chloride 0.9% 1,000 ML IV SCH (00:23)
[2020-07-18] MEDS: Piperacillin/Tazobactam 3.375 GM in Sodium Chloride 0.9% 100 ML IV SCH ×5 (00:43→23:33)
[2020-07-18] MEDS: oxyCODONE 5 MG Tab PO PRN ×4 (07:11→21:52)
[2020-07-18] MEDS: Enoxaparin 40 MG/0.4 ML Syringe SUBCUT SCH (09:02)
[2020-07-18] MEDS ORDERED: Water For Injection, Sterile 40 ML ONE (10:04)
--- NOTE | 2020-07-18 10:11 | PN ---
DATE: 07/18/2020 SUBJECTIVE: The patient is doing fairly well. The patient still has swelling and pain on the left hand, but this is slowly improving. The patient denies any other significant ongoing complaints. No chest pain, shortness of breath, abdominal pain. Appetite has been good. OBJECTIVE: Vital Signs: Blood pressure is 106/68, pulse 84, respirations 20, temperature of 97.7, oxygen saturation is 100% on room air. Heart: Regular rate and rhythm. Normal S1 and S2. No gallops. No rubs. Lungs: Clear. No crackles. No wheezing. Abdomen: Soft, nontender. Bowel sounds positive. Extremities: Negative for any pedal edema. No calf tenderness. An examination of the left hand is still remarkable for some swelling, but no significant redness. LABORATORY DATA: Wound culture preliminary report is normal skin sam and urine culture showed Enterococcus faecalis, which is susceptible to ampicillin and penicillin and tetracycline. Blood cultures are negative. MEDICATIONS: Reviewed. PLAN: We will continue with present IV antibiotics and we will discontinue her IV fluids. [facility] /[id number]
[2020-07-18] MEDS: Vancomycin 1.75 GM in Sodium Chloride 0.9% 500 ML IV SCH ×2 (10:16→21:58)
[2020-07-19] MEDS: Piperacillin/Tazobactam 3.375 GM in Sodium Chloride 0.9% 100 ML IV SCH (05:43)
[2020-07-19] MEDS: oxyCODONE 5 MG Tab PO PRN (09:14)
[2020-07-19] MEDS: Enoxaparin 40 MG/0.4 ML Syringe SUBCUT SCH (10:34)
[2020-07-19] MEDS: Vancomycin 1.75 GM in Sodium Chloride 0.9% 500 ML IV SCH (10:35)
--- NOTE | 2020-07-19 13:48 | PN ---
DATE: 07/19/2020 SUBJECTIVE: The patient continues to do well. The swelling on the left hand continues to improve and the patient denies any significant pain. She denies any fever, chills, nor any other complaints. The patient mentioned that she is ready to go home and she will be staying with her brother. OBJECTIVE: Vital Signs: Blood pressure is 113/83, pulse of 85, respirations 20, temperature of 98.6, saturation is 99% on room air. Heart: Regular rate and rhythm. Normal S1 and S2. No gallops. No rubs. Lungs: Equal bilaterally. No crackles. No wheezing. Abdomen: Soft, nontender. Bowel sounds positive. Extremities: Negative for any pedal edema. No calf tenderness. Examination of the left hand is still remarkable for some mild swelling, but improving. PLAN: We will discharge the patient home today. We will continue with oral antibiotics for the next 7 to 10 days and will have her follow up at [facility] for a recheck and followup. [facility] /[id number]
--- NOTE | 2020-07-19 18:19 | DISCH ---
FINAL DIAGNOSES: 1. Cellulitis and abscess of the left hand. 2. Cellulitis of the right forearm. 3. Urinary tract infection. 4. IV drug use. BRIEF HISTORY OF PRESENT ILLNESS: The patient is a 40-year-old female who was admitted through the emergency room because of cellulitis and abscess of the left hand and cellulitis of the right forearm. HOSPITAL COURSE: The patient was admitted to General Medicine floor after she had an I and D of the left hand in the emergency room. She was empirically started on vancomycin as well as Zosyn. She was placed on DVT prophylaxis and blood cultures were sent and this came back negative. Wound culture came back with skin sam and urine culture showed Enterococcus faecalis, which is susceptible to most antibiotics. Hospital course was uncomplicated, and she was subsequently discharged. CONDITION ON DISCHARGE: Improved. DISCHARGE INSTRUCTIONS: The patient will be continued on clindamycin 300 mg t.i.d. for the next 7 days and she is going to follow up at [facility] in 1 week for a recheck of the left hand cellulitis. [facility] /[id number]
== END 2020-07-19 11:30 | disposition home or self-care (01) | DRG 603 ==
LOC: DL.ED 09:55 → DL.MS 11:31
PROVIDERS: ADMIT Internal Medicine; ATTEND Internal Medicine
DX: L03.114 Cellulitis of left upper limb (principal); N39.0 Urinary tract infection, site not specified; L02.512 Cutaneous abscess of left hand; L03.113 Cellulitis of right upper limb; F15.90 Other stimulant use, unspecified, uncomplicated; Z20.822 Contact with and (suspected) exposure to COVID-19; B95.2 Enterococcus as the cause of diseases classified elsewhere
CPT/HCPCS: 10061; 36415; 80053; 80202; 80305-QW; 80307; 81001; 81025; 83605; 85025; 86140; 87040; 87070; 87086; 87088; 87186; 99284; A9270-GY; J1200; J1650; J2001; J2543; J3370; J7030; J7040; J7050; U0002

== ENCOUNTER 2021-08-16 01:49 | Emergency (ER) | payer MEDICAID ==
[2021-08-16] MEDS ORDERED: Acetaminophen/HYDROcodone 325-10 MG Tab PO ONE ×3 (01:50→03:11)
[2021-08-16] MEDS ORDERED: Ketorolac 30 MG/ML SDV IM ONE (02:30)
[2021-08-16] MEDS ORDERED: Acetaminophen/HYDROcodone 325-10 MG Tab ONE (03:16)
== END 2021-08-16 03:52 | disposition home or self-care (01) ==
LOC: DL.ED 01:49
DX: S52.572A Other intraarticular fracture of lower end of left radius, initial encounter for closed fracture (principal); S52.602A Unspecified fracture of lower end of left ulna, initial encounter for closed fracture; E66.9 Obesity, unspecified; Z68.34 Body mass index [BMI] 34.0-34.9, adult; Z72.0 Tobacco use; W18.30XA Fall on same level, unspecified, initial encounter
CPT/HCPCS: 29125; 73000; 73060; 73090; 96372; 99284; A9270; J1885

== ENCOUNTER 2021-08-18 19:21 | Emergency (ER) | payer MEDICAID ==
[2021-08-18] MEDS ORDERED: Ketorolac 30 MG/ML SDV IM ONE (20:28)
[2021-08-18] MEDS ORDERED: oxyCODONE ER 10 MG TAB.ER PO ONE (21:01)
== END 2021-08-18 21:20 | disposition home or self-care (01) ==
LOC: DL.ED 19:21
DX: M79.602 Pain in left arm (principal); E66.9 Obesity, unspecified; Z68.34 Body mass index [BMI] 34.0-34.9, adult; Z72.0 Tobacco use
CPT/HCPCS: 96372; 99283; A9270; J1885

== ENCOUNTER 2021-09-18 15:26 | Emergency (ER) | payer MEDICAID ==
[2021-09-18] MEDS ORDERED: GI Cocktail Oral Solution 30 ML PO ONE (16:39)
[2021-09-18 16:41] LABS: ANION GAP 19.9 mEq/L (7-13); CHLORIDE,CL 109 mmol/L (98-107); ESTIMATED GFR > 60; SODIUM,NA 144 mmol/L (136-145)
[2021-09-18] MEDS: Sodium Chloride 0.9% 10 ML Syringe FLUSH PRN ×2 (16:47→17:42)
[2021-09-18] MEDS ORDERED: Calcium Chloride 10% 1 GM/10 ML Syringe IVPUSH ONE (17:01)
[2021-09-18] MEDS ORDERED: Iopamidol 755 Mg/ML 100 ML Bottle IVPUSH ONE (17:05)
[2021-09-18] MEDS ORDERED: HYDROmorphone 0.5 MG/0.5 ML Syringe IVPUSH ONE (17:28)
[2021-09-18] MEDS ORDERED: Ondansetron 4 MG/2 ML SDV IVPUSH ONE (17:28)
== END 2021-09-18 19:32 | disposition home or self-care (01) ==
LOC: DL.ED 15:26
DX: R07.9 Chest pain, unspecified (principal); E66.9 Obesity, unspecified; Z68.36 Body mass index [BMI] 36.0-36.9, adult; Z88.5 Allergy status to narcotic agent; Z72.0 Tobacco use
CPT/HCPCS: 36415; 71260; 80053; 83605; 83690; 83735; 83970; 84100; 84443; 84484; 85025; 86140; 93005; 96374; 96375; 99284; A9270; J1170; J2405; Q9967; 93010; J3490

== ENCOUNTER 2021-11-14 19:01 | Emergency (ER) | payer MEDICAID ==
[2021-11-14] MEDS ORDERED: LORazepam 1 MG Tab PO ONE ×2 (19:02→23:45)
[2021-11-14] MEDS ORDERED: Bacitracin Oint 1 GM U/D Packet TOP ONE (19:11)
[2021-11-14] MEDS ORDERED: Lidocaine 1% 30 ML SDV INJECT ONE (19:11)
[2021-11-14 21:38] LABS: ANION GAP 17.3 mEq/L (7-13)
[2021-11-14] MEDS ORDERED: Metoprolol Tartrate 25 MG Tab PO ONE (23:44)
[2021-11-15] MEDS ORDERED: LORazepam 1 MG Tab ONE (00:38)
[2021-11-15] MEDS ORDERED: Acetaminophen 325 MG Tab PO ONE (00:48)
== END 2021-11-15 00:58 | disposition other institution (70) ==
LOC: DL.ED 19:01
DX: S61.210A Laceration without foreign body of right index finger without damage to nail, initial encounter (principal); S41.111A Laceration without foreign body of right upper arm, initial encounter; F10.10 Alcohol abuse, uncomplicated; I10 Essential (primary) hypertension; E66.9 Obesity, unspecified; Z68.30 Body mass index [BMI] 30.0-30.9, adult; Z72.0 Tobacco use; Z88.5 Allergy status to narcotic agent; W22.09XA Striking against other stationary object, initial encounter; W26.8XXA Contact with other sharp object(s), not elsewhere classified, initial encounter
CPT/HCPCS: 12001; 12002; 36415; 73130-RT; 80053; 80307; 85025; 99283-25; 99284; A9270-GY

== ENCOUNTER 2022-01-31 18:40 | Emergency (ER) | payer MEDICAID | END 2022-01-31 21:22 | disposition left against medical advice (07) | LOC: DL.ED 18:40 | DX: Z53.21 Procedure and treatment not carried out due to patient leaving prior to being seen by health care provider (principal) ==

== ENCOUNTER 2022-02-07 05:26 | Emergency (ER) | payer MEDICAID ==
[2022-02-07 06:55] LABS: ANION GAP 12.8 mEq/L (7-13); CHLORIDE,CL 106 mmol/L (98-107); SODIUM,NA 141 mmol/L (136-145)
[2022-02-07 06:56] LABS: ESTIMATED GFR 84 mL/min (>=60)
[2022-02-07] MEDS ORDERED: Iopamidol 755 Mg/ML 100 ML Bottle IVPUSH ONE (07:15)
[2022-02-07 07:20] LABS: AMPHETAMINES,URINE NEGATIVE (NEGATIVE); BARBITURATES,URINE NEGATIVE (NEGATIVE); BENZODIAZEPINE,URINE NEGATIVE (NEGATIVE); MDMA (ECSTASY), URINE NEGATIVE (NEGATIVE); METHADONE,URINE NEGATIVE (NEGATIVE); METHAMPHETAMINES,URINE NEGATIVE (NEGATIVE); OPIATES,URINE NEGATIVE (NEGATIVE); OXYCODONE,URINE NEGATIVE (NEGATIVE); PHENCYCLIDINE,URINE NEGATIVE (NEGATIVE); TCA,URINE NEGATIVE (NEGATIVE)
== END 2022-02-07 09:17 | disposition home or self-care (01) ==
LOC: DL.ED 05:26
DX: S20.211A Contusion of right front wall of thorax, initial encounter (principal); S00.83XA Contusion of other part of head, initial encounter; L02.416 Cutaneous abscess of left lower limb; L03.811 Cellulitis of head [any part, except face]; I10 Essential (primary) hypertension; F17.210 Nicotine dependence, cigarettes, uncomplicated; E66.9 Obesity, unspecified; Z68.30 Body mass index [BMI] 30.0-30.9, adult; Z88.5 Allergy status to narcotic agent; Z79.82 Long term (current) use of aspirin; Z20.822 Contact with and (suspected) exposure to COVID-19; W19.XXXA Unspecified fall, initial encounter
CPT/HCPCS: 36415; 70450; 70486; 71260; 80053; 80305-QW; 82150; 83605; 83690; 83880; 84484; 84703; 85025; 85379; 87040; 93005; 99285; Q9967; U0002

== ENCOUNTER 2023-02-05 06:00 | Emergency (ER) | payer MEDICAID ==
[2023-02-05] MEDS ORDERED: Sodium Chloride 0.9% 10 ML Syringe FLUSH PRN ×2 (06:59→08:01)
[2023-02-05 07:16] LABS: BASOPHILS PERCENT AUTO 0.1 % (0.0-1.0); EOSINOPHILS PERCENT AUTO 0.1 % (1.0-3.0); HEMATOCRIT 29.8 % (37.0-47.0); HEMOGLOBIN 8.8 g/dL (12.0-16.0); LYMPHOCYTES PERCENT AUTO 27.3 % (20.5-50.1); MEAN CORPUSCULAR HEMOGLOBIN 22.4 pg (27.0-34.0); MEAN CORPUSCULAR HGB CONC 29.5 g/dL (33.0-35.0); MONOCYTES PERCENT AUTO 10.4 % (2-8); NEUTROPHILS PERCENT AUTO 62.1 % (42.2-75.2); PLATELET COUNT,PLT 237 10^3/uL (150-450); RED BLOOD CELL COUNT 3.92 10^6/uL (4.2-5.4); WHITE BLOOD CELL COUNT,WBC 7.1 10^3/uL (5.0-10.0)
[2023-02-05 07:34] LABS: INR 0.9 (0.9-1.2); PROTHROMBIN TIME 9.2 SEC (9.0-12.0); PTT,PARTIAL THROMBOPLSTIN TIME 23.9 SEC (22.0-34.0)
[2023-02-05 07:38] LABS: ALANINE AMINOTRANSFERASE,ALT 32 U/L (14-59); ALBUMIN 3.1 g/dL (3.4-5.0); ALKALINE PHOSPHATASE 108 U/L (46-116); ANION GAP 12.5 mEq/L (7-13); ASPARTATE AMNIOTRANSFERASE,AST 36 U/L (15-37); BILIRUBIN TOTAL 0.3 mg/dL (0.2-1.0); BLOOD UREA NITROGEN,BUN 8 mg/dL (7-18); BUN/CREATININE RATIO 10.4 (No establ ref range); C-REACTIVE PROTEIN 2.3 mg/dL (0.0-0.9); CARBON DIOXIDE,CO2 26 mmol/L (21-32); CHLORIDE,CL 105 mmol/L (98-107); CREATININE 0.77 mg/dL (0.55-1.02); EST CRCL DRUG DOSING (CG) 72.55 mL/min; GLUCOSE RANDOM 102 mg/dL (70-99); LACTIC ACID 1.4 mmol/L (0.4-2.0); POTASSIUM,K 3.5 mmol/L (3.5-5.1); PROTEIN TOTAL,TP 7.6 g/dL (6.4-8.2); SODIUM,NA 140 mmol/L (136-145)
[2023-02-05 07:41] LABS: A/G RATIO 0.69; ESTIMATED GFR 99 mL/min (>=60)
[2023-02-05] MEDS ORDERED: Iopamidol 755 Mg/ML 100 ML Bottle IVPUSH ONE (08:01)
[2023-02-05] MEDS ORDERED: Ondansetron 4 MG/2 ML SDV IVPUSH ONE (08:49)
[2023-02-05] MEDS ORDERED: Orphenadrine 60 MG/2 ML Inj IM ONE (08:49)
[2023-02-05] MEDS ORDERED: Ketorolac 30 MG/ML SDV IVPUSH ONE (08:49)
== END 2023-02-05 09:01 | disposition home or self-care (01) ==
LOC: DL.ED 06:00
DX: R07.89 Other chest pain (principal); I10 Essential (primary) hypertension; E66.9 Obesity, unspecified; Z88.5 Allergy status to narcotic agent; Z88.8 Allergy status to other drugs, medicaments and biological substances; Z79.82 Long term (current) use of aspirin; Z72.0 Tobacco use; Z68.35 Body mass index [BMI] 35.0-35.9, adult
CPT/HCPCS: 36415; 71100-LT; 71260; 80053; 83605; 84145; 84484; 85025; 85379; 85610; 85730; 86140; 93005; 93010; 96372; 96374; 96375; 99284; 99285-25; J1885; J2360; J2405; J3490; Q9967

== ENCOUNTER 2023-02-14 17:08 | Emergency (ER) | payer MEDICAID ==
[2023-02-14] MEDS ORDERED: HYDROmorphone 1 MG/ML Syringe IM ONE (17:52)
[2023-02-14] MEDS ORDERED: Promethazine 25 MG Tab PO ONE (17:52)
[2023-02-14] MEDS ORDERED: Take Home: Ondansetron 4 MG Tab.DIS, 5 Tab Pack PO ONE (18:44)
== END 2023-02-14 19:17 | disposition home or self-care (01) ==
LOC: DL.ED 17:08
DX: G89.18 Other acute postprocedural pain (principal); M25.572 Pain in left ankle and joints of left foot; R11.0 Nausea; I10 Essential (primary) hypertension; E66.9 Obesity, unspecified; Z98.890 Other specified postprocedural states; Z88.8 Allergy status to other drugs, medicaments and biological substances; Z88.5 Allergy status to narcotic agent; Z79.82 Long term (current) use of aspirin
CPT/HCPCS: 73610; 96372; 99283; A9270; J1170; Q0162; 99284

== ENCOUNTER 2023-07-27 19:00 | Emergency (ER) | payer MEDICAID ==
[2023-07-27] MEDS ORDERED: Sodium Chloride 0.9% 10 ML Syringe FLUSH PRN (20:38)
[2023-07-27] MEDS ORDERED: Lactated Ringers 1,000 ML IV SCH (20:45)
[2023-07-27 20:51] LABS: BASOPHILS PERCENT AUTO 0.3 % (0.0-1.0); EOSINOPHILS PERCENT AUTO 0.4 % (1.0-3.0); HEMATOCRIT 36.5 % (37.0-47.0); HEMOGLOBIN 10.9 g/dL (12.0-16.0); LYMPHOCYTES PERCENT AUTO 22.1 % (20.5-50.1); MEAN CORPUSCULAR HGB CONC 29.9 g/dL (33.0-35.0); MONOCYTES PERCENT AUTO 7.9 % (2-8); NEUTROPHILS PERCENT AUTO 69.3 % (42.2-75.2); PLATELET COUNT,PLT 311 10^3/uL (150-450); RED BLOOD CELL COUNT 4.74 10^6/uL (4.2-5.4); WHITE BLOOD CELL COUNT,WBC 9.5 10^3/uL (5.0-10.0)
[2023-07-27 21:10] LABS: A/G RATIO 0.7; ALBUMIN 3.7 g/dL (3.4-5.0); ANION GAP 14.8 mEq/L (7-13); BILIRUBIN TOTAL 0.4 mg/dL (0.2-1.0); BUN/CREATININE RATIO 14.1 (No establ ref range); CALCIUM 8.6 mg/dL (8.5-10.1); CREATININE 0.71 mg/dL (0.55-1.02); EST CRCL DRUG DOSING (CG) 77.89 mL/min; POTASSIUM,K 3.8 mmol/L (3.5-5.1); PROTEIN TOTAL,TP 9.1 g/dL (6.4-8.2)
[2023-07-27] MEDS ORDERED: Ketorolac 30 MG/ML SDV IVPUSH ONE (21:34)
[2023-07-27] MEDS ORDERED: cefTRIAXone 1 GM Vial IVPUSH ONE (21:40)
[2023-07-27] MEDS ORDERED: Sulfamethoxazole/Trimethoprim 800-160 MG Tab PO ONE (21:42)
== END 2023-07-27 23:38 | disposition home or self-care (01) ==
LOC: DL.ED 19:00
DX: L03.811 Cellulitis of head [any part, except face] (principal); A49.02 Methicillin resistant Staphylococcus aureus infection, unspecified site; I10 Essential (primary) hypertension; E66.9 Obesity, unspecified; Z88.8 Allergy status to other drugs, medicaments and biological substances; Z79.899 Other long term (current) drug therapy; Z86.16 Personal history of COVID-19; Z68.35 Body mass index [BMI] 35.0-35.9, adult
CPT/HCPCS: 36415; 80053; 84702; 85025; 87070; 87077; 87186; 96361; 96374; 96375; 99283; 99284; A9270; J0696; J1885; J7120; J3490

== ENCOUNTER 2023-10-01 13:11 | Emergency (ER) | payer MEDICAID ==
[2023-10-01] MEDS: Lactated Ringers 1,000 ML IV ONE ×2 (13:53→15:50)
[2023-10-01 13:58] LABS: BASOPHILS PERCENT AUTO 0.3 % (0.0-1.0); EOSINOPHILS PERCENT AUTO 0.1 % (1.0-3.0); HEMATOCRIT 35.8 % (37.0-47.0); HEMOGLOBIN 10.7 g/dL (12.0-16.0); LYMPHOCYTES PERCENT AUTO 28.7 % (20.5-50.1); MEAN CORPUSCULAR HEMOGLOBIN 22.9 pg (27.0-34.0); MEAN CORPUSCULAR HGB CONC 29.9 g/dL (33.0-35.0); MEAN CORPUSCULAR VOLUME 76.7 fL (80-100); MONOCYTES PERCENT AUTO 9.1 % (2-8); NEUTROPHILS PERCENT AUTO 61.8 % (42.2-75.2); PLATELET COUNT,PLT 240 10^3/uL (150-450); RED BLOOD CELL COUNT 4.67 10^6/uL (4.2-5.4); WHITE BLOOD CELL COUNT,WBC 9.4 10^3/uL (5.0-10.0)
[2023-10-01 14:31] LABS: A/G RATIO 0.6; ALBUMIN 3.4 g/dL (3.4-5.0); ANION GAP 17.4 mEq/L (7-13); BILIRUBIN TOTAL 0.2 mg/dL (0.2-1.0); BUN/CREATININE RATIO 11.8 (No establ ref range); CALCIUM 8.5 mg/dL (8.5-10.1); CREATININE 0.93 mg/dL (0.55-1.02); EST CRCL DRUG DOSING (CG) 62.33 mL/min; POTASSIUM,K 3.4 mmol/L (3.5-5.1); PROTEIN TOTAL,TP 8.7 g/dL (6.4-8.2)
[2023-10-01 15:12] LABS: APPEARANCE,URINE SLIGHTLY CLOUDY (CLEAR); BILIRUBIN,URINE NEGATIVE (NEGATIVE); COLOR,URINE YELLOW (YELLOW); GLUCOSE,URINE NEGATIVE (NEGATIVE); KETONES,URINE 15 (NEGATIVE); LEUKOCYTE ESTERASE,URINE SMALL (NEGATIVE); NITRITE,URINE NEGATIVE (NEGATIVE); OCCULT BLOOD,URINE SMALL (NEGATIVE); PROTEIN,URINE 30 (NEGATIVE)
[2023-10-01 15:18] LABS: AMPHETAMINES,URINE NEGATIVE (NEGATIVE); BARBITURATES,URINE NEGATIVE (NEGATIVE); BENZODIAZEPINE,URINE NEGATIVE (NEGATIVE); MDMA (ECSTASY), URINE NEGATIVE (NEGATIVE); METHADONE,URINE NEGATIVE (NEGATIVE); METHAMPHETAMINES,URINE NEGATIVE (NEGATIVE); OPIATES,URINE NEGATIVE (NEGATIVE); OXYCODONE,URINE NEGATIVE (NEGATIVE); PHENCYCLIDINE,URINE NEGATIVE (NEGATIVE); TCA,URINE NEGATIVE (NEGATIVE)
[2023-10-01 15:27] LABS: BACTERIA,URINE MODERATE /HPF (0-FEW/HPF); EPITHELIAL CELLS,URINE MANY /HPF (NOT SEEN); RBC,URINE 0-5 /HPF (0-5)
[2023-10-01] MEDS: Sulfamethoxazole/Trimethoprim 800-160 MG Tab PO ONE (17:00)
== END 2023-10-01 17:00 | disposition home or self-care (01) ==
LOC: DL.ED 13:11
DX: L03.116 Cellulitis of left lower limb (principal); I10 Essential (primary) hypertension; E66.9 Obesity, unspecified; F17.210 Nicotine dependence, cigarettes, uncomplicated; Z88.8 Allergy status to other drugs, medicaments and biological substances; Z88.5 Allergy status to narcotic agent; Z86.19 Personal history of other infectious and parasitic diseases; Z86.16 Personal history of COVID-19; Z68.34 Body mass index [BMI] 34.0-34.9, adult; Z79.899 Other long term (current) drug therapy
CPT/HCPCS: 36415; 80053; 80305; 80307; 81001; 81025; 83605; 85025; 87086; 96360; 96361; 99283; A9270; J7120

== ENCOUNTER 2024-07-23 08:50 | Emergency (ER) | payer MEDICAID, OTHER ==
[2024-07-23] MEDS ORDERED: Sodium Chloride 0.9% 10 ML Syringe FLUSH PRN (09:15)
[2024-07-23] MEDS: LORazepam 1 MG Tab PO ONE (09:22)
[2024-07-23 09:36] LABS: BASOPHILS PERCENT AUTO 0.7 % (0.0-1.0); EOSINOPHILS PERCENT AUTO 0.2 % (1.0-3.0); HEMATOCRIT 33.5 % (37.0-47.0); HEMOGLOBIN 10.2 g/dL (12.0-16.0); LYMPHOCYTES PERCENT AUTO 34.9 % (20.5-50.1); MEAN CORPUSCULAR HEMOGLOBIN 22.9 pg (27.0-34.0); MEAN CORPUSCULAR HGB CONC 30.4 g/dL (33.0-35.0); MEAN CORPUSCULAR VOLUME 75.1 fL (80-100); MONOCYTES PERCENT AUTO 8.7 % (2-8); NEUTROPHILS PERCENT AUTO 55.5 % (42.2-75.2); PLATELET COUNT,PLT 225 10^3/uL (150-450); RED BLOOD CELL COUNT 4.46 10^6/uL (4.2-5.4); WHITE BLOOD CELL COUNT,WBC 4.2 10^3/uL (5.0-10.0)
[2024-07-23 09:47] LABS: AMPHETAMINES,URINE NEGATIVE (NEGATIVE); BARBITURATES,URINE NEGATIVE (NEGATIVE); BENZODIAZEPINE,URINE NEGATIVE (NEGATIVE); MDMA (ECSTASY), URINE NEGATIVE (NEGATIVE); METHADONE,URINE NEGATIVE (NEGATIVE); METHAMPHETAMINES,URINE NEGATIVE (NEGATIVE); OPIATES,URINE NEGATIVE (NEGATIVE); OXYCODONE,URINE NEGATIVE (NEGATIVE); PHENCYCLIDINE,URINE NEGATIVE (NEGATIVE); TCA,URINE NEGATIVE (NEGATIVE)
[2024-07-23 09:56] LABS: A/G RATIO 0.6; ALANINE AMINOTRANSFERASE,ALT 78 U/L (14-59); ALBUMIN 3.6 g/dL (3.4-5.0); ALKALINE PHOSPHATASE 166 U/L (46-116); ANION GAP 20.6 mEq/L (7-13); ASPARTATE AMNIOTRANSFERASE,AST 279 U/L (15-37); BILIRUBIN TOTAL 0.7 mg/dL (0.2-1.0); BLOOD UREA NITROGEN,BUN 6 mg/dL (7-18); BUN/CREATININE RATIO 7.4 (No establ ref range); CALCIUM 8.6 mg/dL (8.5-10.1); CARBON DIOXIDE,CO2 22 mmol/L (21-32); CHLORIDE,CL 97 mmol/L (98-107); CREATININE 0.81 mg/dL (0.55-1.02); ESTIMATED GFR 92 mL/min (>=60); ETHANOL BLOOD MEDICAL 91 mg/dL (0); GLUCOSE RANDOM 119 mg/dL (70-99); POTASSIUM,K 3.6 mmol/L (3.5-5.1); PROTEIN TOTAL,TP 9.2 g/dL (6.4-8.2); SODIUM,NA 136 mmol/L (136-145)
[2024-07-23] MEDS: Ondansetron 4 MG Tab.DIS PO ONE (10:59)
[2024-07-23 11:15] LABS: PROTHROMBIN TIME 10.1 SEC (9.0-12.0)
== END 2024-07-23 11:12 ==
LOC: DL.ED 08:50
DX: F10.930 Alcohol use, unspecified with withdrawal, uncomplicated (principal); I10 Essential (primary) hypertension; E66.9 Obesity, unspecified; Z88.5 Allergy status to narcotic agent; Z88.8 Allergy status to other drugs, medicaments and biological substances; Z79.899 Other long term (current) drug therapy; Y90.4 Blood alcohol level of 80-99 mg/100 ml
CPT/HCPCS: 36415; 80053; 80305; 80307; 85025; 85610; 99283; 99284; A9270

== ENCOUNTER 2024-12-26 19:45 | Emergency (ER) | payer MEDICAID ==
[2024-12-26 20:25] LABS: BASOPHILS PERCENT AUTO 0.1 % (0.0-1.0); EOSINOPHILS PERCENT AUTO 0.1 % (1.0-3.0); HEMATOCRIT 35.1 % (37.0-47.0); HEMOGLOBIN 10.9 g/dL (12.0-16.0); LYMPHOCYTES PERCENT AUTO 28.8 % (20.5-50.1); MEAN CORPUSCULAR HEMOGLOBIN 24.9 pg (27.0-34.0); MEAN CORPUSCULAR HGB CONC 31.1 g/dL (33.0-35.0); MEAN CORPUSCULAR VOLUME 80.1 fL (80-100); MONOCYTES PERCENT AUTO 7.3 % (2-8); NEUTROPHILS PERCENT AUTO 63.7 % (42.2-75.2); PLATELET COUNT,PLT 131 10^3/uL (150-450); RED BLOOD CELL COUNT 4.38 10^6/uL (4.2-5.4); WHITE BLOOD CELL COUNT,WBC 7.4 10^3/uL (5.0-10.0)
[2024-12-26 20:29] LABS: APPEARANCE,URINE CLOUDY (CLEAR); BILIRUBIN,URINE LARGE (NEGATIVE); COLOR,URINE DARK YELLOW (YELLOW); GLUCOSE,URINE 100 (NEGATIVE); KETONES,URINE 15 (NEGATIVE); LEUKOCYTE ESTERASE,URINE TRACE (NEGATIVE); NITRITE,URINE POSITIVE (NEGATIVE); OCCULT BLOOD,URINE LARGE (NEGATIVE); PROTEIN,URINE 100 (NEGATIVE); UROBILINOGEN,URINE >=8.0 mg/dL (0.2-1.0)
[2024-12-26 20:37] LABS: BUN/CREATININE RATIO 4.8 (No establ ref range); EST CRCL DRUG DOSING (CG) 46.27 mL/min; POTASSIUM,K 2.6 mmol/L (3.5-5.1); PROTEIN TOTAL,TP 8.5 g/dL (6.4-8.2); SODIUM,NA 133 mmol/L (136-145)
[2024-12-26] MEDS: Ondansetron 4 MG/2 ML SDV IVPUSH ONE (20:37)
[2024-12-26] MEDS: GI Cocktail Oral Solution 30 ML PO ONE (20:37)
[2024-12-26] MEDS: Sodium Chloride 0.9% 1,000 ML IV ONE ×2 (20:37→22:19)
[2024-12-26 20:40] LABS: BACTERIA,URINE MANY /HPF (0-FEW/HPF); EPITHELIAL CELLS,URINE MANY /HPF (NOT SEEN); MUCUS,URINE FEW /LPF (NOT SEEN)
[2024-12-26 20:41] LABS: FINE GRANULAR CASTS,URINE RARE /LPF (NOT SEEN)
[2024-12-26 20:45] LABS: AMPHETAMINES,URINE NEGATIVE (NEGATIVE); BARBITURATES,URINE NEGATIVE (NEGATIVE); BENZODIAZEPINE,URINE POSITIVE (NEGATIVE); MDMA (ECSTASY), URINE NEGATIVE (NEGATIVE); METHADONE,URINE NEGATIVE (NEGATIVE); METHAMPHETAMINES,URINE NEGATIVE (NEGATIVE); OPIATES,URINE NEGATIVE (NEGATIVE); OXYCODONE,URINE NEGATIVE (NEGATIVE); PHENCYCLIDINE,URINE NEGATIVE (NEGATIVE); TCA,URINE NEGATIVE (NEGATIVE)
[2024-12-26 20:56] LABS: BILIRUBIN TOTAL 1.9 mg/dL (0.2-1.0); CARBON DIOXIDE,CO2 26 mmol/L (21-32)
[2024-12-26 21:17] LABS: ETHANOL BLOOD MEDICAL < 3 mg/dL (0)
[2024-12-26 21:18] LABS: ANION GAP 16.5 mEq/L (7-13); CHLORIDE,CL 93 mmol/L (98-107); CREATININE 1.24 mg/dL (0.55-1.02); GLUCOSE RANDOM 150 mg/dL (70-99)
[2024-12-26 21:19] LABS: ALBUMIN 3.2 g/dL (3.4-5.0); ALKALINE PHOSPHATASE 279 U/L (46-116); ESTIMATED GFR 55 mL/min (>=60)
[2024-12-26 21:20] LABS: ALANINE AMINOTRANSFERASE,ALT 32 U/L (14-59); ASPARTATE AMNIOTRANSFERASE,AST 146 U/L (15-37); LIPASE 32 U/L (16-77)
[2024-12-26 21:21] LABS: LACTIC ACID 2.4 mmol/L (0.4-2.0)
[2024-12-26 21:30] LABS: BLOOD UREA NITROGEN,BUN 6 mg/dL (7-18)
[2024-12-26] MEDS: Potassium Chloride 10 MEQ Tab.ER PO ONE (22:18)
[2024-12-26] MEDS: cefTRIAXone 1 GM Vial IVPUSH ONE (22:19)
[2024-12-26] MEDS: Magnesium Sulfate 2 GM/50 mL 2 GM in Premix Bag 1 BAG IV ONE (22:23)
[2024-12-26] MEDS: Magnesium Sulfate 2 GM/50 mL 50 ML ONE (22:25)
[2024-12-26] MEDS: Potassium Chloride 100 ML ONE (22:26)
[2024-12-26] MEDS: Potassium Chloride 20 MEQ in Premix Bag 1 BAG IV ONE (22:26)
== END 2024-12-27 00:56 | disposition home or self-care (01) ==
LOC: DL.ED 19:45
DX: K59.00 Constipation, unspecified (principal); N39.0 Urinary tract infection, site not specified; R07.2 Precordial pain; E87.6 Hypokalemia; E83.42 Hypomagnesemia; E86.0 Dehydration; I10 Essential (primary) hypertension; F17.200 Nicotine dependence, unspecified, uncomplicated; Z86.16 Personal history of COVID-19; Z90.49 Acquired absence of other specified parts of digestive tract; Z88.5 Allergy status to narcotic agent; Z88.6 Allergy status to analgesic agent
CPT/HCPCS: 36415; 74018; 80053; 80305; 80307; 81001; 83605; 83690; 83735; 84484; 85025; 87086; 87088; 87186; 93005; 93010; 96361; 96365; 96366; 96367; 96375; 99284; 99285; A9270; J0696; J2405; J3475; J3480; J7030

== ENCOUNTER 2025-04-26 11:13 | Emergency (ER) | payer SELFPAY ==
[2025-04-26] MEDS ORDERED: Sodium Chloride 0.9% 10 ML Syringe FLUSH PRN (11:26)
[2025-04-26 11:35] LABS: BASOPHILS PERCENT AUTO 0.3 % (0.0-1.0); EOSINOPHILS PERCENT AUTO 0.1 % (1.0-3.0); LYMPHOCYTES PERCENT AUTO 29.0 % (20.5-50.1); MONOCYTES PERCENT AUTO 5.4 % (2-8); NEUTROPHILS PERCENT AUTO 65.2 % (42.2-75.2); PLATELET COUNT,PLT 129 10^3/uL (150-450); RED BLOOD CELL COUNT 4.53 10^6/uL (4.2-5.4); WHITE BLOOD CELL COUNT,WBC 7.1 10^3/uL (5.0-10.0)
[2025-04-26] MEDS: MVI, Adult with Vitamin K 10 ML, Folic Acid 1 MG, Thiamine 100 MG in Lactated Ringers 1... IV ONE (11:46)
[2025-04-26] MEDS: Ondansetron 4 MG/2 ML SDV IVPUSH ONE (11:47)
[2025-04-26 11:56] LABS: A/G RATIO 0.6; ALANINE AMINOTRANSFERASE,ALT 46 U/L (14-59); ASPARTATE AMNIOTRANSFERASE,AST 211 U/L (15-37); BILIRUBIN TOTAL 1.4 mg/dL (0.2-1.0); BLOOD UREA NITROGEN,BUN 4 mg/dL (7-18); CARBON DIOXIDE,CO2 27 mmol/L (21-32); CHLORIDE,CL 96 mmol/L (98-107); CREATININE 0.84 mg/dL (0.55-1.02); EST CRCL DRUG DOSING (CG) 68.30 mL/min; GLUCOSE RANDOM 153 mg/dL (70-99); HCG QUALITATIVE,SERUM NEGATIVE (NEGATIVE); POTASSIUM,K 3.1 mmol/L (3.5-5.1); PROTEIN TOTAL,TP 9.6 g/dL (6.4-8.2); SODIUM,NA 137 mmol/L (136-145)
[2025-04-26 11:57] LABS: ESTIMATED GFR 88 mL/min (>=60)
[2025-04-26] MEDS: diphenhydrAMINE 50 MG/ML SDV IVPUSH ONE (12:06)
[2025-04-26] MEDS: Magnesium Sulfate 2 GM/50 mL 2 GM in Premix Bag 1 BAG IV ONE (12:06)
[2025-04-26] MEDS: Potassium Chloride 10 MEQ Tab.ER PO ONE (12:06)
[2025-04-26] MEDS: Take Home: Potassium Chloride 10 MEQ Tab, 10 Tab Pack PO ONE (12:37)
== END 2025-04-26 12:50 | disposition home or self-care (01) ==
LOC: DL.ED 11:13
DX: F10.20 Alcohol dependence, uncomplicated (principal); E87.6 Hypokalemia; E83.42 Hypomagnesemia; I10 Essential (primary) hypertension; Z88.5 Allergy status to narcotic agent; Z88.8 Allergy status to other drugs, medicaments and biological substances; Z86.16 Personal history of COVID-19; Z90.49 Acquired absence of other specified parts of digestive tract; Y90.9 Presence of alcohol in blood, level not specified
CPT/HCPCS: 36415; 80053; 83735; 84703; 85025; 96365; 96368; 96375; 99284; A9270; J1200; J1808; J2405; J3411; J3475; J7120; J3490